=== PATIENT | female | born 1975 | race Two or more races ===

== ENCOUNTER 2017-08-13 05:05 | Inpatient (IN) | payer MEDICAID ==
[2017-08-13] MEDS ORDERED: Sodium Chloride 0.9% 1,000 ML IV ONE (05:11)
--- NOTE | 2017-08-13 05:20 | EDM.PDOC ---
ED HPI GENERAL MEDICAL PROBLEM - General Chief Complaint: Abdominal Pain Time Seen by Provider: 08/13/17 05:13 Source of Information: Reports: Patient, EMS - History of Present Illness INITIAL COMMENTS - FREE TEXT/NARRATIVE: HISTORY AND PHYSICAL: History of present illness: [Patient had presented to [facility] emergency room with abdominal pain, she CBC CMP abdominal flat and upright performed performed in [facility] with a diagnosis of gastroparesis versus gastric all of obstruction. They had been having trouble passing an NG tube and had called requesting transfer for evaluation and treatment. Patient had received fentanyl and Ativan in [facility]. The patient had refused ambulance transfer and wanted to come by private vehicle with a reefer truck driver. The patient did not present to our emergency department ultimately called [facility] inquiring about the patient she and her significant other had went home she had been sleeping and was awakened by police at [facility] request. Ultimately ambulance was called to transport the patient. She had complained of abdominal pain EMS provided further fentanyl 50 g. Patient is belching no fever nausea vomiting chills sweats no chest pain shortness breath headache dizziness palpitation denies ] Review of systems: As per history of present illness and below otherwise all systems reviewed and negative. Past medical history: As per history of present illness and as reviewed below otherwise noncontributory. Surgical history: As per history of present illness and as reviewed below otherwise noncontributory. Social history: No reported history of drug or alcohol abuse. Family history: As per history of present illness and as reviewed below otherwise noncontributory. Physical exam: HEENT: Atraumatic, normocephalic, pupils reactive, negative for conjunctival pallor or scleral icterus, mucous membranes moist, throat clear, neck supple, nontender, trachea midline. Lungs: Clear to auscultation, breath sounds equal bilaterally, chest nontender. Heart: S1S2, regular, negative for clicks, rubs, or JVD. Abdomen: obese, mildly distended, diffusely tender. Negative for masses or hepatosplenomegaly. Negative for costovertebral tenderness. Pelvis: Stable nontender. Genitourinary: Deferred. Rectal: Deferred. Extremities: Atraumatic, negative for cords or calf pain. Neurovascular unremarkable. Neuro: Awake, alert, oriented. Cranial nerves II through XII unremarkable. Cerebellum unremarkable. Motor and sensory unremarkable throughout. Exam nonfocal. Diagnostics: [CBC, blood cultures CBC CMP and plain film flat and upright abdomen performed in [facility], unable to open on PACS viewer, records accompany the patient read as gastroparesis versus gastric outlet obstruction Abdomen flat and upright ] Therapeutics: []1 L normal saline bolus Normal saline 1 25 mL per hour Reglan 10 mg IV Patient discussed with Dr. Wilkerson earlier in the evening Impression: Hypotension on arrival--resolved [Abdominal pain Ileus Definitive disposition and diagnosis as appropriate pending reevaluation and review of above. Abdomen Pain Score (Numeric/FACES): 9 - Related Data Allergies Allergy/AdvReac Type Severity Reaction Status Date / Time Penicillins Allergy Hives Verified 08/13/17 05:09 Bee Stings Allergy Edema Uncoded 08/13/17 05:09 Home Meds: Home Meds Naproxen 220 mg PO ASDIRECTED PRN 08/13/17 [History] Prazosin [Minpress] 1 mg PO BEDTIME 08/13/17 [History] Sertraline HCl [Zoloft] 1 tab PO DAILY 08/13/17 [History] Solifenacin Succinate [Vesicare] 10 mg PO DAILY 08/13/17 [History] diphenhydrAMINE [Benadryl] 25 mg PO Q6HR 08/13/17 [History] Social & Family History - Tobacco Use Smoking Status *Q: Never Smoker - Recreational Drug Use Recreational Drug Use: No ED ROS GENERAL - Review of Systems Review Of Systems: ROS reveals no pertinent complaints other than HPI. ED EXAM, GENERAL - Physical Exam Exam: See Below Course - Vital Signs Last Recorded V/S: Last Vital Signs Temp 99.1 F 08/13/17 05:05 Pulse 73 08/13/17 06:22 Resp 18 08/13/17 06:22 BP 120/56 L 08/13/17 06:22 Pulse Ox 96 08/13/17 06:22 - Orders/Labs/Meds Orders: Active Orders 24 hr Category Date Time Status Admission Status [Patient Status] [ADT] Stat ADT 08/13/17 06:29 Ordered Abdomen 2V AP Flat Upright [CR] Stat Exams 08/13/17 05:20 Ordered CULTURE BLOOD [BC] Stat Lab 08/13/17 05:26 Received CULTURE BLOOD [BC] Stat Lab 08/13/17 05:30 Results Blood Culture x2 Reflex Set [OM.PC] Stat Oth 08/13/17 05:12 Ordered Labs: Laboratory Tests 08/13/17 Range/Units 05:26 WBC 10.95 (4.0-11.0) K/uL RBC 3.93 L (4.30-5.90) M/uL Hgb 11.8 L (12.0-16.0) g/dL Hct 36.7 (36.0-46.0) % MCV 93.4 (80.0-98.0) fL MCH 30.0 (27.0-32.0) pg MCHC 32.2 (31.0-37.0) g/dL RDW Std Deviation 52.7 (28.0-62.0) fl RDW Coeff of Titus 16 H (11.0-15.0) % Plt Count 280 (150-400) K/uL MPV 10.20 (7.40-12.00) fL Neut % (Auto) 67.9 (48.0-80.0) % Lymph % (Auto) 18.4 (16.0-40.0) % [place] % (Auto) 8.3 (0.0-15.0) % Eos % (Auto) 5.1 (0.0-7.0) % Baso % (Auto) 0.3 (0.0-1.5) % Neut # (Auto) 7.4 H (1.4-5.7) K/uL Lymph # (Auto) 2.0 (0.6-2.4) K/uL [place] # (Auto) 0.9 H (0.0-0.8) K/uL Eos # (Auto) 0.6 (0.0-0.7) K/uL Baso # (Auto) 0.0 (0.0-0.1) K/uL Nucleated RBC % 0.0 /100WBC Nucleated RBCs # 0 K/uL Meds: Medications Discontinued Medications Generic Name Dose Route Start Last Admin Trade Name Freq PRN Reason Stop Dose Admin Sodium Chloride 1,000 mls @ 999 mls/hr 08/13/17 05:11 08/13/17 05:17 Normal Saline IV 08/13/17 06:11 999 mls/hr STAT ONE Administration Metoclopramide HCl 10 mg 08/13/17 06:29 Reglan IV 12/02/17 06:30 ONETIME ONE Departure - Departure Time of Disposition: 06:32 Disposition: Refer to Observation Condition: Fair Clinical Impression: Ileus - Discharge Information Referrals: Puja Tejeda PA [Primary Care Provider] - Forms: ED Department Discharge - My Orders Last 24 Hours: My Active Orders 08/13/17 05:12 Blood Culture x2 Reflex Set [OM.PC] Stat 08/13/17 05:20 Abdomen 2V AP Flat Upright [CR] Stat 08/13/17 05:26 CULTURE BLOOD [BC] Stat 08/13/17 05:30 CULTURE BLOOD [BC] Stat 08/13/17 06:29 Admission Status [Patient Status] [ADT] Stat - Assessment/Plan Last 24 Hours: My Active Orders 08/13/17 05:12 Blood Culture x2 Reflex Set [OM.PC] Stat 08/13/17 05:20 Abdomen 2V AP Flat Upright [CR] Stat 08/13/17 05:26 CULTURE BLOOD [BC] Stat 08/13/17 05:30 CULTURE BLOOD [BC] Stat 08/13/17 06:29 Admission Status [Patient Status] [ADT] Stat
[2017-08-13] MEDS ORDERED: Metoclopramide 10 MG/2 ML SDV IV ONE (06:29)
[2017-08-13] MEDS ORDERED: Sodium Chloride 0.9% 1,000 ML IV SCH (06:45)
[2017-08-13] MEDS ORDERED: Ondansetron 4 MG/2 ML SDV IVPUSH PRN (08:56)
[2017-08-13 10:52] LABS: CHLORIDE,CL 109 mmol/L (98-110); SODIUM,NA 137 mmol/L (136-146)
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
--- NOTE | 2017-08-13 11:05 | PCM.SN ---
- Free Text/Narrative Note: Stat lactate was within normal limits.
[2017-08-13] MEDS: D5 1/2 NS w/ 20 mEq/L KCl 1,000 ML IV SCH ×2 (11:12→18:28)
[2017-08-13] MEDS: Morphine 2 MG/ML Syringe IVPUSH PRN ×4 (12:29→22:32)
[2017-08-13] MEDS ORDERED: LORazepam 2 MG/ML SDV IVPUSH PRN (21:02)
[2017-08-13] MEDS: Prazosin 1 MG Cap PO SCH (22:31)
[2017-08-13] MEDS: Ciprofloxacin in D5W 400 MG in Premix Bag 1 BAG IV SCH ×2 (22:32)
[2017-08-13] MEDS: metroNIDAZOLE/Normal Saline 500 MG in Premix Bag 1 BAG IV SCH (23:41)
[2017-08-14] MEDS: D5 1/2 NS w/ 20 mEq/L KCl 1,000 ML IV SCH (02:56)
[2017-08-14] MEDS: Ciprofloxacin in D5W 400 MG in Premix Bag 1 BAG IV SCH ×6 (05:06→22:13)
[2017-08-14] MEDS: metroNIDAZOLE/Normal Saline 500 MG in Premix Bag 1 BAG IV SCH ×4 (06:12→20:51)
[2017-08-14 06:43] LABS: CHLORIDE,CL 106 mmol/L (98-110); SODIUM,NA 134 mmol/L (136-146)
[2017-08-14] MEDS: Morphine 2 MG/ML Syringe IVPUSH PRN (07:31)
[2017-08-14] MEDS: Sertraline 50 MG Tab PO SCH (08:45)
[2017-08-14] MEDS ORDERED: Enoxaparin 40 MG/0.4 ML Syringe SUBCUT SCH (09:00)
[2017-08-14] MEDS ORDERED: Iopamidol 755 MG/ML 500 ML Multipack Bottle IVPUSH STA (09:23)
[2017-08-14] MEDS ORDERED: fentaNYL 100 MCG/2 ML SDV IVPUSH ONE (10:44)
--- NOTE | 2017-08-14 10:50 | PCM.SN ---
- Free Text/Narrative Note: [address] abd/pelvis results from nurse which showed acute perforated appendix. Call immediately given to surgery Dr. Gray to see patient.
--- NOTE | 2017-08-14 11:51 | PCM.SN ---
- Free Text/Narrative Note: pt seen, chart reviewed, proceed w appendectomy; pt had lovenox, will risk bleeding, pt voiced understanding; [id number]
[2017-08-14] MEDS ORDERED: Bupivacaine 25%/EPINEPHrine/PF 30 ML ONE (11:54)
[2017-08-14] MEDS ORDERED: Octyl 2-Cyanoacrylate 1 Tube ONE (11:55)
[2017-08-14] MEDS ORDERED: fentaNYL 100 MCG/2 ML SDV ONE (12:01)
[2017-08-14] MEDS ORDERED: HYDROmorphone 2 MG/ML Syringe ONE (12:01)
[2017-08-14] MEDS ORDERED: Propofol 200 MG/20 ML SDV ONE (12:01)
[2017-08-14] MEDS ORDERED: Midazolam 1 MG/ML 2 ML SDV ONE (12:01)
[2017-08-14] MEDS ORDERED: Ondansetron 4 MG/2 ML SDV ONE (12:03)
[2017-08-14] MEDS ORDERED: Neostigmine Methylsulfate 1 MG/ML 5 ML Syringe ONE (12:03)
[2017-08-14] MEDS ORDERED: Ketorolac 30 MG/ML SDV ONE (12:03)
[2017-08-14] MEDS ORDERED: Lidocaine 2% 5 ML SDV ONE (12:03)
[2017-08-14] MEDS ORDERED: diphenhydrAMINE 50 MG/ML SDV ONE (12:03)
[2017-08-14] MEDS ORDERED: Rocuronium 10 MG/ML 10 ML Syringe ONE (12:03)
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
--- NOTE | 2017-08-14 12:29 | PCM.SN ---
- Free Text/Narrative Note: pt had lovenox 5 hrs ago, and is now for surgery; with perforated appendectomy, hi risks to convert from lap to open; will proceed w 2 unit of FFP. pt voiced understanding; and surgery will also insert a anabelle drain, and if open appendectomy , wound would need to leave open to dressing change q day for 1 - 2 wks; pt and fam member voiced understanding
[2017-08-14] MEDS ORDERED: Lactated Ringers 1,000 ML IV SCH ×2 (12:30→16:30)
[2017-08-14] MEDS ORDERED: fentaNYL 100 MCG/2 ML SDV IVPUSH PRN ×2 (12:39→20:33)
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
[2017-08-14] MEDS: Acetaminophen 325 MG Tab PO PRN (12:52)
[2017-08-14] MEDS ORDERED: Phenylephrine/Normal Saline 100 MCG/ML 10 ML Syringe ONE (14:05)
[2017-08-14] MEDS ORDERED: fentaNYL 250 MCG/5 ML SDV ONE (14:17)
--- NOTE | 2017-08-14 15:54 | CONS ---
DATE OF CONSULTATION: 08/14/2017 DATE OF : 1975 PRIMARY CARE PHYSICIAN: Puja Tejeda Consult was called at 10:45 and the patient was seen at 11:30. CONSULTING QUESTION: Perforated appendicitis. HISTORY OF PRESENT ILLNESS: The patient is a [id number] who complained about acute onset of epigastric pain, 06/21, 3 days ago. She was seen at [place], who wanted to do an NG tube decompression for possible gastric outlet obstruction, but the patient refused, and the patient was recommended to come to [place] for further workup and treatment. The patient states she was too tired, she went home and slept, so the hospital apparently called the police in [place] to locate the patient, and transport the patient to our facility, and workup was continued. The patient complained of fever, nausea, vomiting, and abdominal pain. There was no increase in pain and workup included blood work and CAT scan. Admission blood work was 10.95 white count and subsequently increased to 13.76. She had a workup with CAT scan and CAT scan revealed acute perforated appendicitis. Surgery was then consulted. Currently, the patient complains lots of pain and requests pain medication. PAST SURGICAL HISTORY: Normal delivery x5 and x1. ALLERGIES: She is allergic to PCN MEDICATION: Please refer to nursing for details. SOCIAL HISTORY: The patient is currently an everyday smoker. Sometimes some alcohol. FAMILY HISTORY: Noncontributory. REVIEW OF SYSTEMS: Same as in history of present illness. PHYSICAL EXAMINATION: GENERAL: A very pleasant lady, in obvious abdominal pain. HEENT: Normocephalic, atraumatic. Sclerae anicteric. LUNGS: Clear to auscultation. HEART: Regular rate and rhythm. ABDOMEN: Tender to touch in bilateral lower quadrants and with rebound tenderness. LABORATORY DATA: Upon consultation, white count 13.76, H and H is 11 and 34.6, and platelet is 233. Sodium 134, potassium 3.6, glucose is 131, amylase is 28, lipase is 29, and beta HCG is not available. IMPRESSION: Acute appendicitis. PLAN: She will benefit from appendectomy, laparoscopic versus open, likely with open. Risks and benefits were discussed with the patient including bleeding, infection, and damage to nearby organ and risks of abdominal abscess around 24% chance. The patient will have the appendix removed, risks and benefits were discussed including a drain placement and wound likely will be left open. The patient voiced understanding and proceed as planned. The patient is already on Lovenox given 5 hours ago and the patient will risk bleeding. The patient is aware of that and proceeds with surgery. DASHA GUTIERREZ /[id number] MTDWilfred
[2017-08-14] MEDS ORDERED: Morphine 4 MG/ML Syringe IV PRN (16:24)
[2017-08-14] MEDS ORDERED: Ondansetron 4 MG/2 ML SDV IVPUSH PRN (16:26)
[2017-08-14] MEDS ORDERED: Levofloxacin/Dextrose 5%-Water 750 MG in Premix Bag 1 BAG IV SCH (16:30)
--- NOTE | 2017-08-14 16:34 | PCM.OPNOTE ---
- General Post-Op/Procedure Note Date of Surgery/Procedure: 08/14/17 Operative Procedure(s): appendectomy, laparoscopic Findings: perforated appendicits with appendicolith and peritonitis; peritoneal fluid is yellow and cloudy; drain placed; [id number] Pre Op Diagnosis: perforated acute appendicitis Post-Op Diagnosis: same Anesthesia Technique: General ET Tube Primary Surgeon: Gabriel Gray Pathology: sent Complications: None Condition: Good Free Text/Narrative:: Intake & Output 08/14/17 08/14/17 08/14/17 06:59 14:59 22:59 Intake Total 1800 214 191 Output Total 550 50 Balance 1250 164 191
--- NOTE | 2017-08-14 17:13 | PCM.POSTAN ---
POST ANESTHESIA ASSESSMENT - MENTAL STATUS Mental Status: Oriented, Somnolent - VITAL SIGNS Pulse Rate: 106 SaO2: 96 Resp Rate: 20 Blood Pressure: 90/50 - RESPIRATORY Respiratory Status: Respiratory Rate WNL, Airway Patent, O2 Saturation Stable - CARDIOVASCULAR CV Status: Pulse Rate WNL, Blood Pressure Stable, Elevated Pulse Rate (as per baseline preop) Free Text/Narrative:: required one liter LR bp now stable at systolic between 85 and 95 for 30 minutes - GASTROINTESTINAL GI Status: No Symptoms - PAIN Pain Score: 2 - POST OP HYDRATION Hydration Status: Adequate & Stable
[2017-08-14] MEDS ORDERED: Phenylephrine/Normal Saline 100 MCG/ML 10 ML Syringe IVPUSH ONE ×2 (18:14→18:49)
[2017-08-14] MEDS ORDERED: Sodium Chloride 0.9% 1,000 ML IV ONE (18:25)
[2017-08-14] MEDS: Prazosin 1 MG Cap PO SCH (20:29)
[2017-08-14] MEDS: Sodium Chloride 0.9% 1,000 ML IV SCH (20:46)
[2017-08-15] MEDS: Acetaminophen 325 MG Tab PO PRN ×2 (00:43→11:52)
[2017-08-15] MEDS: metroNIDAZOLE/Normal Saline 500 MG in Premix Bag 1 BAG IV SCH ×4 (02:04→20:58)
[2017-08-15] MEDS: Acetaminophen/oxyCODONE 325-5 MG Tab PO PRN ×4 (04:00→18:12)
[2017-08-15] MEDS: Ciprofloxacin in D5W 400 MG in Premix Bag 1 BAG IV SCH ×6 (05:05→22:10)
--- NOTE | 2017-08-15 06:29 | PCM48HPAN ---
Post Anesthesia Note - EVALUATION WITHIN 48HRS OF ANESTHETIC Vital Signs in Normal Range: Yes Patient Participated in Evaluation: No (sleeping, spoke to RN) Respiratory Function Stable: Yes Airway Patent: Yes Cardiovascular Function Stable: Yes (fluid boluses through the night) Hydration Status Stable: Yes Pain Control Satisfactory: Yes Nausea and Vomiting Control Satisfactory: Yes Mental Status Recovered: Yes
[2017-08-15 06:36] LABS: CHLORIDE,CL 110 mmol/L (98-110); SODIUM,NA 139 mmol/L (136-146)
--- NOTE | 2017-08-15 07:26 | PCM.SURGPN ---
- General Info Date of Service: 08/15/17 POD#: 1 Functional Status: Reports: Pain Controlled - Review of Systems General: Reports: No Symptoms Genitourinary: Reports: No Symptoms - Patient Data Vitals - Most Recent: Last Vital Signs Temp 99 F 08/15/17 04:00 Pulse 106 H 08/14/17 18:50 Resp 18 08/15/17 07:00 BP 106/55 L 08/15/17 07:00 Pulse Ox 96 08/15/17 07:00 Weight - Most Recent: 209 lb 7.026 oz I&O - Last 24 Hours: Intake & Output 08/14/17 08/15/17 08/15/17 22:59 06:59 14:59 Intake Total 3231 370 Output Total 990 740 Balance 2241 -370 Lab Results Last 24 Hrs: Laboratory Results - last 24 hr 08/14/17 08/14/17 08/14/17 Range/Units 06:10 06:10 11:28 WBC (4.0-11.0) K/uL RBC (4.30-5.90) M/uL Hgb (12.0-16.0) g/dL Hct (36.0-46.0) % MCV (80.0-98.0) fL MCH (27.0-32.0) pg MCHC (31.0-37.0) g/dL RDW Std Deviation (28.0-62.0) fl RDW Coeff of Titus (11.0-15.0) % Plt Count (150-400) K/uL MPV (7.40-12.00) fL Neut % (Auto) (48.0-80.0) % Lymph % (Auto) (16.0-40.0) % Harlan % (Auto) (0.0-15.0) % Eos % (Auto) (0.0-7.0) % Baso % (Auto) (0.0-1.5) % Neut # (Auto) (1.4-5.7) K/uL Lymph # (Auto) (0.6-2.4) K/uL Harlan # (Auto) (0.0-0.8) K/uL Eos # (Auto) (0.0-0.7) K/uL Baso # (Auto) (0.0-0.1) K/uL Nucleated RBC % /100WBC Nucleated RBCs # K/uL INR (0.86-1.11) APTT (18.6-31.3) SEC Sodium (136-146) mmol/L Potassium (3.5-5.1) mmol/L Chloride (98-110) mmol/L Carbon Dioxide (21-31) mmol/L BUN (6.0-23.0) mg/dL Creatinine (0.6-1.5) mg/dL Est Cr Clr Drug Dosing mL/min Estimated GFR (MDRD) ml/min Glucose (60-110) mg/dL POC Glucose 126 H (60-110) mg/dL Calcium (8.8-10.8) mg/dL Magnesium (1.5-2.3) mEq/L Total Bilirubin (0.1-1.5) mg/dL AST (5-40) IU/L ALT (8-54) IU/L Alkaline Phosphatase (40-150) Total Protein (6.0-8.0) g/dL Albumin (3.5-5.0) g/dL Globulin (2.0-3.5) g/dL Albumin/Globulin Ratio (1.3-2.8) Amylase 28 (10-90) U/L Lipase < 9 (7-80) U/L Urine HCG, Qual (NEGATIVE) Blood Type Antibody Screen 08/14/17 08/14/17 08/14/17 Range/Units 12:14 12:15 12:15 WBC (4.0-11.0) K/uL RBC (4.30-5.90) M/uL Hgb (12.0-16.0) g/dL Hct (36.0-46.0) % MCV (80.0-98.0) fL MCH (27.0-32.0) pg MCHC (31.0-37.0) g/dL RDW Std Deviation (28.0-62.0) fl RDW Coeff of Titus (11.0-15.0) % Plt Count (150-400) K/uL MPV (7.40-12.00) fL Neut % (Auto) (48.0-80.0) % Lymph % (Auto) (16.0-40.0) % Harlan % (Auto) (0.0-15.0) % Eos % (Auto) (0.0-7.0) % Baso % (Auto) (0.0-1.5) % Neut # (Auto) (1.4-5.7) K/uL Lymph # (Auto) (0.6-2.4) K/uL Harlan # (Auto) (0.0-0.8) K/uL Eos # (Auto) (0.0-0.7) K/uL Baso # (Auto) (0.0-0.1) K/uL Nucleated RBC % /100WBC Nucleated RBCs # K/uL INR 1.31 H (0.86-1.11) APTT 31.6 H (18.6-31.3) SEC Sodium (136-146) mmol/L Potassium (3.5-5.1) mmol/L Chloride (98-110) mmol/L Carbon Dioxide (21-31) mmol/L BUN (6.0-23.0) mg/dL Creatinine (0.6-1.5) mg/dL Est Cr Clr Drug Dosing mL/min Estimated GFR (MDRD) ml/min Glucose (60-110) mg/dL POC Glucose (60-110) mg/dL Calcium (8.8-10.8) mg/dL Magnesium (1.5-2.3) mEq/L Total Bilirubin (0.1-1.5) mg/dL AST (5-40) IU/L ALT (8-54) IU/L Alkaline Phosphatase (40-150) Total Protein (6.0-8.0) g/dL Albumin (3.5-5.0) g/dL Globulin (2.0-3.5) g/dL Albumin/Globulin Ratio (1.3-2.8) Amylase (10-90) U/L Lipase (7-80) U/L Urine HCG, Qual NEGATIVE (NEGATIVE) Blood Type A POSITIVE Antibody Screen NEGATIVE 08/14/17 08/15/17 08/15/17 Range/Units 18:13 00:38 05:33 WBC 9.74 (4.0-11.0) K/uL RBC 3.29 L (4.30-5.90) M/uL Hgb 9.9 L (12.0-16.0) g/dL Hct 30.8 L (36.0-46.0) % MCV 93.6 (80.0-98.0) fL MCH 30.1 (27.0-32.0) pg MCHC 32.1 (31.0-37.0) g/dL RDW Std Deviation 55.4 (28.0-62.0) fl RDW Coeff of Titus 16 H (11.0-15.0) % Plt Count 203 (150-400) K/uL MPV 10.20 (7.40-12.00) fL Neut % (Auto) 86.4 H (48.0-80.0) % Lymph % (Auto) 7.8 L (16.0-40.0) % Harlan % (Auto) 5.2 (0.0-15.0) % Eos % (Auto) 0.5 (0.0-7.0) % Baso % (Auto) 0.1 (0.0-1.5) % Neut # (Auto) 8.4 H (1.4-5.7) K/uL Lymph # (Auto) 0.8 (0.6-2.4) K/uL Harlan # (Auto) 0.5 (0.0-0.8) K/uL Eos # (Auto) 0.1 (0.0-0.7) K/uL Baso # (Auto) 0.0 (0.0-0.1) K/uL Nucleated RBC % 0.0 /100WBC Nucleated RBCs # 0 K/uL INR (0.86-1.11) APTT (18.6-31.3) SEC Sodium (136-146) mmol/L Potassium (3.5-5.1) mmol/L Chloride (98-110) mmol/L Carbon Dioxide (21-31) mmol/L BUN (6.0-23.0) mg/dL Creatinine (0.6-1.5) mg/dL Est Cr Clr Drug Dosing mL/min Estimated GFR (MDRD) ml/min Glucose (60-110) mg/dL POC Glucose 121 H 96 (60-110) mg/dL Calcium (8.8-10.8) mg/dL Magnesium (1.5-2.3) mEq/L Total Bilirubin (0.1-1.5) mg/dL AST (5-40) IU/L ALT (8-54) IU/L Alkaline Phosphatase (40-150) Total Protein (6.0-8.0) g/dL Albumin (3.5-5.0) g/dL Globulin (2.0-3.5) g/dL Albumin/Globulin Ratio (1.3-2.8) Amylase (10-90) U/L Lipase (7-80) U/L Urine HCG, Qual (NEGATIVE) Blood Type Antibody Screen 08/15/17 08/15/17 08/15/17 Range/Units 05:33 05:33 05:33 WBC (4.0-11.0) K/uL RBC (4.30-5.90) M/uL Hgb (12.0-16.0) g/dL Hct (36.0-46.0) % MCV (80.0-98.0) fL MCH (27.0-32.0) pg MCHC (31.0-37.0) g/dL RDW Std Deviation (28.0-62.0) fl RDW Coeff of Titus (11.0-15.0) % Plt Count (150-400) K/uL MPV (7.40-12.00) fL Neut % (Auto) (48.0-80.0) % Lymph % (Auto) (16.0-40.0) % Harlan % (Auto) (0.0-15.0) % Eos % (Auto) (0.0-7.0) % Baso % (Auto) (0.0-1.5) % Neut # (Auto) (1.4-5.7) K/uL Lymph # (Auto) (0.6-2.4) K/uL Harlan # (Auto) (0.0-0.8) K/uL Eos # (Auto) (0.0-0.7) K/uL Baso # (Auto) (0.0-0.1) K/uL Nucleated RBC % /100WBC Nucleated RBCs # K/uL INR (0.86-1.11) APTT (18.6-31.3) SEC Sodium 139 (136-146) mmol/L Potassium 3.0 L (3.5-5.1) mmol/L Chloride 110 (98-110) mmol/L Carbon Dioxide 22 (21-31) mmol/L BUN 5 L (6.0-23.0) mg/dL Creatinine 0.5 L (0.6-1.5) mg/dL Est Cr Clr Drug Dosing 125.28 mL/min Estimated GFR (MDRD) > 60.0 ml/min Glucose 95 (60-110) mg/dL POC Glucose 86 (60-110) mg/dL Calcium 7.8 L (8.8-10.8) mg/dL Magnesium 1.5 (1.5-2.3) mEq/L Total Bilirubin 0.4 (0.1-1.5) mg/dL AST 11 (5-40) IU/L ALT 13 (8-54) IU/L Alkaline Phosphatase 51 (40-150) Total Protein 5.4 L (6.0-8.0) g/dL Albumin 2.9 L (3.5-5.0) g/dL Globulin 2.5 (2.0-3.5) g/dL Albumin/Globulin Ratio 1.2 L (1.3-2.8) Amylase (10-90) U/L Lipase (7-80) U/L Urine HCG, Qual (NEGATIVE) Blood Type Antibody Screen Flaco Results Last 24 Hrs: Microbiology 08/14/17 14:55 Gram Stain - Final Peritoneal Fluid Med Orders - Current: Current Medications Acetaminophen (Tylenol) 650 mg PO Q4H PRN PRN Reason: Pain/Fever Last Admin: 08/15/17 00:43 Dose: 650 mg Fentanyl (Sublimaze) 50 mcg IVPUSH Q1H PRN PRN Reason: Pain (severe 7-10) Last Admin: 08/14/17 21:17 Dose: 50 mcg Ciprofloxacin/Dextrose 400 mg/ (Premix) 200 mls @ 200 mls/hr IV Q8H [facility] Last Admin: 08/15/17 05:05 Dose: 200 mls/hr Sodium Chloride (Normal Saline) 1,000 mls @ 150 mls/hr IV ASDIRECTED [facility] Last Admin: 08/14/17 20:46 Dose: 150 mls/hr Metronidazole 500 mg/ Premix 100 mls @ 100 mls/hr IV Q6H [facility] Last Admin: 08/15/17 02:04 Dose: 100 mls/hr Lorazepam (Ativan) 2 mg IVPUSH BEDTIME PRN PRN Reason: Anxiety Last Admin: 08/14/17 00:20 Dose: 2 mg Ondansetron HCl (Zofran) 4 mg IVPUSH Q4H PRN PRN Reason: Nausea/Vomiting Last Admin: 08/13/17 09:03 Dose: 4 mg Ondansetron HCl (Zofran) 4 mg IVPUSH Q8H PRN PRN Reason: Nausea/Vomiting Oxycodone/Acetaminophen (Percocet 325-5 Mg) 1 tab PO Q4H PRN PRN Reason: Pain Last Admin: 08/15/17 04:00 Dose: 1 tab Prazosin HCl (Minpress) 1 mg PO BEDTIME JANETT Last Admin: 08/14/17 20:29 Dose: Not Given Sertraline HCl (Zoloft) 50 mg PO DAILY [facility] Last Admin: 08/14/17 08:45 Dose: 50 mg Discontinued Medications Diphenhydramine HCl (Benadryl) Confirm Administered Dose 50 mg .ROUTE .STK-MED ONE Stop: 08/14/17 12:04 Enoxaparin Sodium (Lovenox) 40 mg SUBCUT DAILY [facility] Last Admin: 08/14/17 08:45 Dose: 40 mg Fentanyl (Sublimaze) 50 mcg IVPUSH ONETIME ONE Stop: 08/14/17 10:45 Last Admin: 08/14/17 11:39 Dose: 50 mcg Fentanyl (Sublimaze) Confirm Administered Dose 100 mcg .ROUTE .STK-MED ONE Stop: 08/14/17 12:02 Fentanyl (Sublimaze) 50 mcg IVPUSH Q5M PRN PRN Reason: Pain (severe 7-10) Stop: 08/14/17 18:00 Fentanyl (Sublimaze) Confirm Administered Dose 250 mcg .ROUTE .STK-MED ONE Stop: 08/14/17 14:18 Glycopyrrolate () Confirm Administered Dose 1 mg .ROUTE .STK-MED ONE Stop: 08/14/17 12:04 Hydromorphone HCl (Dilaudid) Confirm Administered Dose 2 mg .ROUTE .STK-MED ONE Stop: 08/14/17 12:02 Sodium Chloride (Normal Saline) 1,000 mls @ 999 mls/hr IV STAT ONE Stop: 08/13/17 06:11 Last Admin: 08/13/17 05:17 Dose: 999 mls/hr Sodium Chloride (Normal Saline) 1,000 mls @ 125 mls/hr IV ASDIRECTED [facility] Last Admin: 08/13/17 06:35 Dose: 125 mls/hr Potassium Chloride/Dextrose/Sod Cl (D5 1/2 Ns W/ 20 Meq/L Kcl) 1,000 mls @ 150 mls/hr IV ASDIRECTED [facility] Last Admin: 08/14/17 02:56 Dose: 150 mls/hr Metronidazole 500 mg/ Premix 100 mls @ 100 mls/hr IV Q6H [facility] Last Admin: 08/14/17 19:59 Dose: Not Given Bupivacaine HCl/Epinephrine Bitart (Sensorc Mpf 0.25%-Epi 1:[id number]) Confirm Administered Dose 30 mls @ as directed .ROUTE .STK-MED ONE Stop: 08/14/17 11:55 Lactated Ringer's (Ringers, Lactated) 1,000 mls @ 125 mls/hr IV ASDIRECTED [facility] Last Admin: 08/14/17 17:26 Dose: 125 mls/hr Lactated Ringer's (Ringers, Lactated) 1,000 mls @ 125 mls/hr IV ASDIRECTED [facility] Levofloxacin/Dextrose 750 mg/ (Premix) 150 mls @ 100 mls/hr IV Q24H [facility] Last Admin: 08/14/17 17:39 Dose: 100 mls/hr Sodium Chloride (Normal Saline) 1,000 mls @ 999 mls/hr IV .Bolus ONE Stop: 08/14/17 19:25 Last Admin: 08/14/17 18:30 Dose: 999 mls/hr Iopamidol (Isovue Multipack-370 (76%)) 100 ml IVPUSH ONETIME STA Stop: 08/14/17 09:24 Last Admin: 08/14/17 09:24 Dose: 100 ml Ketorolac Tromethamine (Toradol) Confirm Administered Dose 30 mg .ROUTE .STK- MED ONE Stop: 08/14/17 12:04 Lidocaine (Xylocaine-Mpf 2%) Confirm Administered Dose 5 ml .ROUTE .STK-MED ONE Stop: 08/14/17 12:04 Metoclopramide HCl (Reglan) 10 mg IV ONETIME ONE Stop: 08/13/17 06:30 Last Admin: 08/13/17 06:33 Dose: 10 mg Midazolam HCl (Versed 1 Mg/Ml) Confirm Administered Dose 2 mg .ROUTE .STK-MED ONE Stop: 08/14/17 12:02 Morphine Sulfate (Morphine) 2 mg IVPUSH Q4H PRN PRN Reason: Pain Last Admin: 08/13/17 16:52 Dose: 2 mg Morphine Sulfate (Morphine) 2 mg IVPUSH Q2H PRN PRN Reason: Pain Last Admin: 08/14/17 07:31 Dose: 2 mg Morphine Sulfate (Morphine) 3 mg IV Q4H PRN PRN Reason: Breakthrough Pain Neostigmine Methylsulfate (Neostigmine) Confirm Administered Dose 5 mg .ROUTE .STK-MED ONE Stop: 08/14/17 12:04 Octyl Cyanoacrylate (Dermabond Advance) Confirm Administered Dose 1 applic .ROUTE .STK-MED ONE Stop: 08/14/17 11:56 Ondansetron HCl (Zofran) Confirm Administered Dose 4 mg .ROUTE .STK-MED ONE Stop: 08/14/17 12:04 Phenylephrine HCl (Phenylephrine In Ns 100 Mcg/Ml) Confirm Administered Dose 1 mg .ROUTE .STK-MED ONE Stop: 08/14/17 14:06 Phenylephrine HCl (Phenylephrine In Ns 100 Mcg/Ml) 0.1 mg IVPUSH ONETIME ONE Stop: 08/14/17 18:15 Last Admin: 08/14/17 18:32 Dose: 0.1 mg Phenylephrine HCl (Phenylephrine In Ns 100 Mcg/Ml) 0.2 mg IVPUSH ONETIME ONE Stop: 08/14/17 18:50 Last Admin: 08/14/17 18:55 Dose: 0.2 mg Propofol (Diprivan 20 Ml) Confirm Administered Dose 200 mg .ROUTE .STK-MED ONE Stop: 08/14/17 12:02 Rocuronium [place] (Zemuron) Confirm Administered Dose 100 mg .ROUTE .STK-MED ONE Stop: 08/14/17 12:04 - Exam GI/Abdominal Exam: Soft, No Distention (wound cdi) - Problem List Review Problem List Initiated/Reviewed/Updated: Yes - My Orders Last 24 Hours: Active Orders 24 hr Category Date Time Status Transfer Patient (Change bed) [ADT] Routine ADT 08/14/17 18:57 Ordered Bradycardia-Neuroaxis [employer] [RC] ROUTINE Care 08/14/17 12:40 Active Communication Order [RC] ROUTINE Care 08/14/17 17:57 Active Hypertension-Neuroaxis [employer] [RC] ROUTINE Care 08/14/17 12:40 Active Hypotension-Neuroaxis [employer] [RC] ROUTINE Care 08/14/17 12:40 Active Insert Jackman Catheter [Insert Urinary Catheter] [OM.PC] Care 08/14/17 12:30 Ordered Q24H Oxygen Therapy [RC] ASDIRECTED Care 08/14/17 12:40 Active Urinary Catheter Assessment [RC] ASDIRECTED Care 08/14/17 12:22 Active Verify Patient Consent Obtain [RC] ASDIRECTED Care 08/14/17 12:20 Active Clear Liquid Diet [DIET] Diet 08/15/17 Breakfast Active Abdomen Pelvis w Cont [CT] Routine Exams 08/14/17 08:00 Taken CULTURE ANAEROBIC [RM] Routine Lab 08/14/17 14:55 Results CULTURE BLOOD [BC] Routine Lab 08/14/17 19:17 Received CULTURE BLOOD [BC] Stat Lab 08/14/17 19:25 Received CULTURE BODY FLUID + SMEAR [RM] Routine Lab 08/14/17 14:55 Results GRAM STAIN [RM] Routine Lab 08/14/17 14:51 Uncollected Acetaminophen/oxyCODONE [Percocet 325-5 MG] Med 08/14/17 16:26 Active 1 tab PO Q4H PRN Ondansetron [Zofran] Med 08/14/17 16:26 Active 4 mg IVPUSH Q8H PRN Sertraline [Zoloft] Med 08/14/17 09:00 Active 50 mg PO DAILY Sodium Chloride 0.9% [Normal Saline] 1,000 ml Med 08/14/17 20:45 Active IV ASDIRECTED fentaNYL [Sublimaze] Med 08/14/17 20:33 Active 50 mcg IVPUSH Q1H PRN metroNIDAZOLE/Normal Saline [Flagyl 500 MG in NS 100 ML Med 08/14/17 21:00 Active ] 500 mg Premix Bag 1 bag IV Q6H Transfuse Fresh Frozen Plasma [COMM] Stat Oth 08/14/17 12:01 Ordered Medication Orders Acetaminophen (Tylenol) 650 mg PO Q4H PRN PRN Reason: Pain/Fever Last Admin: 08/15/17 00:43 Dose: 650 mg Admin: 08/14/17 12:52 Dose: 650 mg Fentanyl (Sublimaze) 50 mcg IVPUSH Q1H PRN PRN Reason: Pain (severe 7-10) Last Admin: 08/14/17 21:17 Dose: 50 mcg Ciprofloxacin/Dextrose 400 mg/ (Premix) 200 mls @ 200 mls/hr IV Q8H [facility] Last Admin: 08/15/17 05:05 Dose: 200 mls/hr Infusion: 08/14/17 23:13 Dose: 200 mls/hr Admin: 08/14/17 22:13 Dose: 200 mls/hr Admin: 08/14/17 14:05 Dose: Not Given Infusion: 08/14/17 06:06 Dose: 200 mls/hr Admin: 08/14/17 05:06 Dose: 200 mls/hr Infusion: 08/13/17 23:32 Dose: 200 mls/hr Admin: 08/13/17 22:32 Dose: 200 mls/hr Sodium Chloride (Normal Saline) 1,000 mls @ 150 mls/hr IV ASDIRECTED [facility] Last Admin: 08/14/17 20:46 Dose: 150 mls/hr Metronidazole 500 mg/ Premix 100 mls @ 100 mls/hr IV Q6H [facility] Last Admin: 08/15/17 02:04 Dose: 100 mls/hr Infusion: 08/14/17 21:51 Dose: 100 mls/hr Admin: 08/14/17 20:51 Dose: 100 mls/hr Lorazepam (Ativan) 2 mg IVPUSH BEDTIME PRN PRN Reason: Anxiety Last Admin: 08/14/17 00:20 Dose: 2 mg Ondansetron HCl (Zofran) 4 mg IVPUSH Q4H PRN PRN Reason: Nausea/Vomiting Last Admin: 08/13/17 09:03 Dose: 4 mg Ondansetron HCl (Zofran) 4 mg IVPUSH Q8H PRN PRN Reason: Nausea/Vomiting Oxycodone/Acetaminophen (Percocet 325-5 Mg) 1 tab PO Q4H PRN PRN Reason: Pain Last Admin: 08/15/17 04:00 Dose: 1 tab Prazosin HCl (Minpress) 1 mg PO BEDTIME JANETT Last Admin: 08/14/17 20:29 Dose: Admin: 08/13/17 22:31 Dose: 1 mg Sertraline HCl (Zoloft) 50 mg PO DAILY JANETT Last Admin: 08/14/17 08:45 Dose: 50 mg - Assessment Assessment (Free Text/Narrative):: doing well postop, this morning, hemodynamically stable, making urine; would tansfer out to the floor, continue iv abx, no lovenox, hi bleeding risks, if all doing well, likely will dc home late today or tomorrow w anabelle drain; would finish 24 hr iv abx, then po abx for 10 days; fu w me 1 - 2 wks, no heavy wt lifting > 10 lb X 3 wks; ok to have clear liquid diet for today - Plan Plan (Free Text/Narrative):: doing well postop, this morning, hemodynamically stable, making urine; would tansfer out to the floor, continue iv abx, no lovenox, hi bleeding risks, if all doing well, likely will dc home late today or tomorrow w anabelle drain; would finish 24 hr iv abx, then po abx for 10 days; fu w me 1 - 2 wks, no heavy wt lifting > 10 lb X 3 wks; ok to have clear liquid diet for today
[2017-08-15] MEDS ORDERED: Potassium Chloride 10% 20 MEQ/15 ML Soln 30 ML UD Cup PO ONE (07:45)
--- NOTE | 2017-08-15 08:53 | PCM.PN ---
- General Info Date of Service: 08/15/17 Functional Status: Reports: Pain Controlled, Tolerating Diet - Review of Systems General: Reports: Fatigue HEENT: Reports: No Symptoms Pulmonary: Reports: No Symptoms Cardiovascular: Reports: No Symptoms Gastrointestinal: Reports: Abdominal Pain (improving) Musculoskeletal: Reports: No Symptoms Skin: Reports: No Symptoms Neurological: Reports: No Symptoms Psychiatric: Reports: No Symptoms - Patient Data Vitals - Most Recent: Last Vital Signs Temp 99 F 08/15/17 04:00 Pulse 106 H 08/14/17 18:50 Resp 18 08/15/17 07:00 BP 106/55 L 08/15/17 07:00 Pulse Ox 96 08/15/17 07:00 Weight - Most Recent: 95 kg I&O - Last 24 Hours: Intake & Output 08/14/17 08/15/17 08/15/17 22:59 06:59 14:59 Intake Total 3231 1270 Output Total 990 740 Balance 2241 530 Lab Results Last 24 Hours: Laboratory Results - last 24 hr 08/14/17 08/14/17 08/14/17 Range/Units 06:10 06:10 11:28 WBC (4.0-11.0) K/uL RBC (4.30-5.90) M/uL Hgb (12.0-16.0) g/dL Hct (36.0-46.0) % MCV (80.0-98.0) fL MCH (27.0-32.0) pg MCHC (31.0-37.0) g/dL RDW Std Deviation (28.0-62.0) fl RDW Coeff of Titus (11.0-15.0) % Plt Count (150-400) K/uL MPV (7.40-12.00) fL Neut % (Auto) (48.0-80.0) % Lymph % (Auto) (16.0-40.0) % [place] % (Auto) (0.0-15.0) % Eos % (Auto) (0.0-7.0) % Baso % (Auto) (0.0-1.5) % Neut # (Auto) (1.4-5.7) K/uL Lymph # (Auto) (0.6-2.4) K/uL [place] # (Auto) (0.0-0.8) K/uL Eos # (Auto) (0.0-0.7) K/uL Baso # (Auto) (0.0-0.1) K/uL Nucleated RBC % /100WBC Nucleated RBCs # K/uL INR (0.86-1.11) APTT (18.6-31.3) SEC Sodium (136-146) mmol/L Potassium (3.5-5.1) mmol/L Chloride (98-110) mmol/L Carbon Dioxide (21-31) mmol/L BUN (6.0-23.0) mg/dL Creatinine (0.6-1.5) mg/dL Est Cr Clr Drug Dosing mL/min Estimated GFR (MDRD) ml/min Glucose (60-110) mg/dL POC Glucose 126 H (60-110) mg/dL Calcium (8.8-10.8) mg/dL Magnesium (1.5-2.3) mEq/L Total Bilirubin (0.1-1.5) mg/dL AST (5-40) IU/L ALT (8-54) IU/L Alkaline Phosphatase (40-150) Total Protein (6.0-8.0) g/dL Albumin (3.5-5.0) g/dL Globulin (2.0-3.5) g/dL Albumin/Globulin Ratio (1.3-2.8) Amylase 28 (10-90) U/L Lipase < 9 (7-80) U/L Urine HCG, Qual (NEGATIVE) Blood Type Antibody Screen 08/14/17 08/14/17 08/14/17 Range/Units 12:14 12:15 12:15 WBC (4.0-11.0) K/uL RBC (4.30-5.90) M/uL Hgb (12.0-16.0) g/dL Hct (36.0-46.0) % MCV (80.0-98.0) fL MCH (27.0-32.0) pg MCHC (31.0-37.0) g/dL RDW Std Deviation (28.0-62.0) fl RDW Coeff of Titus (11.0-15.0) % Plt Count (150-400) K/uL MPV (7.40-12.00) fL Neut % (Auto) (48.0-80.0) % Lymph % (Auto) (16.0-40.0) % [place] % (Auto) (0.0-15.0) % Eos % (Auto) (0.0-7.0) % Baso % (Auto) (0.0-1.5) % Neut # (Auto) (1.4-5.7) K/uL Lymph # (Auto) (0.6-2.4) K/uL [place] # (Auto) (0.0-0.8) K/uL Eos # (Auto) (0.0-0.7) K/uL Baso # (Auto) (0.0-0.1) K/uL Nucleated RBC % /100WBC Nucleated RBCs # K/uL INR 1.31 H (0.86-1.11) APTT 31.6 H (18.6-31.3) SEC Sodium (136-146) mmol/L Potassium (3.5-5.1) mmol/L Chloride (98-110) mmol/L Carbon Dioxide (21-31) mmol/L BUN (6.0-23.0) mg/dL Creatinine (0.6-1.5) mg/dL Est Cr Clr Drug Dosing mL/min Estimated GFR (MDRD) ml/min Glucose (60-110) mg/dL POC Glucose (60-110) mg/dL Calcium (8.8-10.8) mg/dL Magnesium (1.5-2.3) mEq/L Total Bilirubin (0.1-1.5) mg/dL AST (5-40) IU/L ALT (8-54) IU/L Alkaline Phosphatase (40-150) Total Protein (6.0-8.0) g/dL Albumin (3.5-5.0) g/dL Globulin (2.0-3.5) g/dL Albumin/Globulin Ratio (1.3-2.8) Amylase (10-90) U/L Lipase (7-80) U/L Urine HCG, Qual NEGATIVE (NEGATIVE) Blood Type A POSITIVE Antibody Screen NEGATIVE 08/14/17 08/15/17 08/15/17 Range/Units 18:13 00:38 05:33 WBC 9.74 (4.0-11.0) K/uL RBC 3.29 L (4.30-5.90) M/uL Hgb 9.9 L (12.0-16.0) g/dL Hct 30.8 L (36.0-46.0) % MCV 93.6 (80.0-98.0) fL MCH 30.1 (27.0-32.0) pg MCHC 32.1 (31.0-37.0) g/dL RDW Std Deviation 55.4 (28.0-62.0) fl RDW Coeff of Titus 16 H (11.0-15.0) % Plt Count 203 (150-400) K/uL MPV 10.20 (7.40-12.00) fL Neut % (Auto) 86.4 H (48.0-80.0) % Lymph % (Auto) 7.8 L (16.0-40.0) % [place] % (Auto) 5.2 (0.0-15.0) % Eos % (Auto) 0.5 (0.0-7.0) % Baso % (Auto) 0.1 (0.0-1.5) % Neut # (Auto) 8.4 H (1.4-5.7) K/uL Lymph # (Auto) 0.8 (0.6-2.4) K/uL [place] # (Auto) 0.5 (0.0-0.8) K/uL Eos # (Auto) 0.1 (0.0-0.7) K/uL Baso # (Auto) 0.0 (0.0-0.1) K/uL Nucleated RBC % 0.0 /100WBC Nucleated RBCs # 0 K/uL INR (0.86-1.11) APTT (18.6-31.3) SEC Sodium (136-146) mmol/L Potassium (3.5-5.1) mmol/L Chloride (98-110) mmol/L Carbon Dioxide (21-31) mmol/L BUN (6.0-23.0) mg/dL Creatinine (0.6-1.5) mg/dL Est Cr Clr Drug Dosing mL/min Estimated GFR (MDRD) ml/min Glucose (60-110) mg/dL POC Glucose 121 H 96 (60-110) mg/dL Calcium (8.8-10.8) mg/dL Magnesium (1.5-2.3) mEq/L Total Bilirubin (0.1-1.5) mg/dL AST (5-40) IU/L ALT (8-54) IU/L Alkaline Phosphatase (40-150) Total Protein (6.0-8.0) g/dL Albumin (3.5-5.0) g/dL Globulin (2.0-3.5) g/dL Albumin/Globulin Ratio (1.3-2.8) Amylase (10-90) U/L Lipase (7-80) U/L Urine HCG, Qual (NEGATIVE) Blood Type Antibody Screen 08/15/17 08/15/17 08/15/17 Range/Units 05:33 05:33 05:33 WBC (4.0-11.0) K/uL RBC (4.30-5.90) M/uL Hgb (12.0-16.0) g/dL Hct (36.0-46.0) % MCV (80.0-98.0) fL MCH (27.0-32.0) pg MCHC (31.0-37.0) g/dL RDW Std Deviation (28.0-62.0) fl RDW Coeff of Titus (11.0-15.0) % Plt Count (150-400) K/uL MPV (7.40-12.00) fL Neut % (Auto) (48.0-80.0) % Lymph % (Auto) (16.0-40.0) % [place] % (Auto) (0.0-15.0) % Eos % (Auto) (0.0-7.0) % Baso % (Auto) (0.0-1.5) % Neut # (Auto) (1.4-5.7) K/uL Lymph # (Auto) (0.6-2.4) K/uL [place] # (Auto) (0.0-0.8) K/uL Eos # (Auto) (0.0-0.7) K/uL Baso # (Auto) (0.0-0.1) K/uL Nucleated RBC % /100WBC Nucleated RBCs # K/uL INR (0.86-1.11) APTT (18.6-31.3) SEC Sodium 139 (136-146) mmol/L Potassium 3.0 L (3.5-5.1) mmol/L Chloride 110 (98-110) mmol/L Carbon Dioxide 22 (21-31) mmol/L BUN 5 L (6.0-23.0) mg/dL Creatinine 0.5 L (0.6-1.5) mg/dL Est Cr Clr Drug Dosing 125.28 mL/min Estimated GFR (MDRD) > 60.0 ml/min Glucose 95 (60-110) mg/dL POC Glucose 86 (60-110) mg/dL Calcium 7.8 L (8.8-10.8) mg/dL Magnesium 1.5 (1.5-2.3) mEq/L Total Bilirubin 0.4 (0.1-1.5) mg/dL AST 11 (5-40) IU/L ALT 13 (8-54) IU/L Alkaline Phosphatase 51 (40-150) Total Protein 5.4 L (6.0-8.0) g/dL Albumin 2.9 L (3.5-5.0) g/dL Globulin 2.5 (2.0-3.5) g/dL Albumin/Globulin Ratio 1.2 L (1.3-2.8) Amylase (10-90) U/L Lipase (7-80) U/L Urine HCG, Qual (NEGATIVE) Blood Type Antibody Screen Flaco Results Last 24 Hours: Microbiology 08/14/17 14:55 Gram Stain - Final Peritoneal Fluid Med Orders - Current: Current Medications Acetaminophen (Tylenol) 650 mg PO Q4H PRN PRN Reason: Pain/Fever Last Admin: 08/15/17 00:43 Dose: 650 mg Fentanyl (Sublimaze) 50 mcg IVPUSH Q1H PRN PRN Reason: Pain (severe 7-10) Last Admin: 08/14/17 21:17 Dose: 50 mcg Ciprofloxacin/Dextrose 400 mg/ (Premix) 200 mls @ 200 mls/hr IV Q8H [facility] Last Admin: 08/15/17 05:05 Dose: 200 mls/hr Sodium Chloride (Normal Saline) 1,000 mls @ 150 mls/hr IV ASDIRECTED JANETT Last Admin: 08/14/17 20:46 Dose: 150 mls/hr Metronidazole 500 mg/ Premix 100 mls @ 100 mls/hr IV Q6H [facility] Last Admin: 08/15/17 02:04 Dose: 100 mls/hr Lorazepam (Ativan) 2 mg IVPUSH BEDTIME PRN PRN Reason: Anxiety Last Admin: 08/14/17 00:20 Dose: 2 mg Ondansetron HCl (Zofran) 4 mg IVPUSH Q4H PRN PRN Reason: Nausea/Vomiting Last Admin: 08/13/17 09:03 Dose: 4 mg Ondansetron HCl (Zofran) 4 mg IVPUSH Q8H PRN PRN Reason: Nausea/Vomiting Oxycodone/Acetaminophen (Percocet 325-5 Mg) 1 tab PO Q4H PRN PRN Reason: Pain Last Admin: 08/15/17 04:00 Dose: 1 tab Prazosin HCl (Minpress) 1 mg PO BEDTIME [facility] Last Admin: 08/14/17 20:29 Dose: Not Given Sertraline HCl (Zoloft) 50 mg PO DAILY [facility] Last Admin: 08/14/17 08:45 Dose: 50 mg Discontinued Medications Diphenhydramine HCl (Benadryl) Confirm Administered Dose 50 mg .ROUTE .STK-MED ONE Stop: 08/14/17 12:04 Enoxaparin Sodium (Lovenox) 40 mg SUBCUT DAILY [facility] Last Admin: 08/14/17 08:45 Dose: 40 mg Fentanyl (Sublimaze) 50 mcg IVPUSH ONETIME ONE Stop: 08/14/17 10:45 Last Admin: 08/14/17 11:39 Dose: 50 mcg Fentanyl (Sublimaze) Confirm Administered Dose 100 mcg .ROUTE .STK-MED ONE Stop: 08/14/17 12:02 Fentanyl (Sublimaze) 50 mcg IVPUSH Q5M PRN PRN Reason: Pain (severe 7-10) Stop: 08/14/17 18:00 Fentanyl (Sublimaze) Confirm Administered Dose 250 mcg .ROUTE .STK-MED ONE Stop: 08/14/17 14:18 Glycopyrrolate () Confirm Administered Dose 1 mg .ROUTE .STK-MED ONE Stop: 08/14/17 12:04 Hydromorphone HCl (Dilaudid) Confirm Administered Dose 2 mg .ROUTE .STK-MED ONE Stop: 08/14/17 12:02 Sodium Chloride (Normal Saline) 1,000 mls @ 999 mls/hr IV STAT ONE Stop: 08/13/17 06:11 Last Admin: 08/13/17 05:17 Dose: 999 mls/hr Sodium Chloride (Normal Saline) 1,000 mls @ 125 mls/hr IV ASDIRECTED [facility] Last Admin: 08/13/17 06:35 Dose: 125 mls/hr Potassium Chloride/Dextrose/Sod Cl (D5 1/2 Ns W/ 20 Meq/L Kcl) 1,000 mls @ 150 mls/hr IV ASDIRECTED [facility] Last Admin: 08/14/17 02:56 Dose: 150 mls/hr Metronidazole 500 mg/ Premix 100 mls @ 100 mls/hr IV Q6H [facility] Last Admin: 08/14/17 19:59 Dose: Not Given Bupivacaine HCl/Epinephrine Bitart (Sensorc Mpf 0.25%-Epi 1:216684) Confirm Administered Dose 30 mls @ as directed .ROUTE .STK-MED ONE Stop: 08/14/17 11:55 Lactated Ringer's (Ringers, Lactated) 1,000 mls @ 125 mls/hr IV ASDIRECTED [facility] Last Admin: 08/14/17 17:26 Dose: 125 mls/hr Lactated Ringer's (Ringers, Lactated) 1,000 mls @ 125 mls/hr IV ASDIRECTED [facility] Levofloxacin/Dextrose 750 mg/ (Premix) 150 mls @ 100 mls/hr IV Q24H [facility] Last Admin: 08/14/17 17:39 Dose: 100 mls/hr Sodium Chloride (Normal Saline) 1,000 mls @ 999 mls/hr IV .Bolus ONE Stop: 08/14/17 19:25 Last Admin: 08/14/17 18:30 Dose: 999 mls/hr Iopamidol (Isovue Multipack-370 (76%)) 100 ml IVPUSH ONETIME STA Stop: 08/14/17 09:24 Last Admin: 08/14/17 09:24 Dose: 100 ml Ketorolac Tromethamine (Toradol) Confirm Administered Dose 30 mg .ROUTE .STK- MED ONE Stop: 08/14/17 12:04 Lidocaine (Xylocaine-Mpf 2%) Confirm Administered Dose 5 ml .ROUTE .STK-MED ONE Stop: 08/14/17 12:04 Metoclopramide HCl (Reglan) 10 mg IV ONETIME ONE Stop: 08/13/17 06:30 Last Admin: 08/13/17 06:33 Dose: 10 mg Midazolam HCl (Versed 1 Mg/Ml) Confirm Administered Dose 2 mg .ROUTE .STK-MED ONE Stop: 08/14/17 12:02 Morphine Sulfate (Morphine) 2 mg IVPUSH Q4H PRN PRN Reason: Pain Last Admin: 08/13/17 16:52 Dose: 2 mg Morphine Sulfate (Morphine) 2 mg IVPUSH Q2H PRN PRN Reason: Pain Last Admin: 08/14/17 07:31 Dose: 2 mg Morphine Sulfate (Morphine) 3 mg IV Q4H PRN PRN Reason: Breakthrough Pain Neostigmine Methylsulfate (Neostigmine) Confirm Administered Dose 5 mg .ROUTE .STK-MED ONE Stop: 08/14/17 12:04 Octyl Cyanoacrylate (Dermabond Advance) Confirm Administered Dose 1 applic .ROUTE .STK-MED ONE Stop: 08/14/17 11:56 Ondansetron HCl (Zofran) Confirm Administered Dose 4 mg .ROUTE .STK-MED ONE Stop: 08/14/17 12:04 Phenylephrine HCl (Phenylephrine In Ns 100 Mcg/Ml) Confirm Administered Dose 1 mg .ROUTE .STK-MED ONE Stop: 08/14/17 14:06 Phenylephrine HCl (Phenylephrine In Ns 100 Mcg/Ml) 0.1 mg IVPUSH ONETIME ONE Stop: 08/14/17 18:15 Last Admin: 08/14/17 18:32 Dose: 0.1 mg Phenylephrine HCl (Phenylephrine In Ns 100 Mcg/Ml) 0.2 mg IVPUSH ONETIME ONE Stop: 08/14/17 18:50 Last Admin: 08/14/17 18:55 Dose: 0.2 mg Potassium Chloride (Potassium Chloride) 40 meq PO ONETIME ONE Stop: 08/15/17 07:46 Propofol (Diprivan 20 Ml) Confirm Administered Dose 200 mg .ROUTE .STK-MED ONE Stop: 08/14/17 12:02 Rocuronium [place] (Zemuron) Confirm Administered Dose 100 mg .ROUTE .STK-MED ONE Stop: 08/14/17 12:04 - Exam General: Alert, Oriented HEENT: Pupils Equal, EOMI Neck: Supple Lungs: Clear to Auscultation, Normal Respiratory Effort Cardiovascular: Regular Rate, Regular Rhythm GI/Abdominal Exam: Soft, Tender Back Exam: Normal Inspection, Full Range of Motion Extremities: Normal Inspection, Normal Range of Motion Skin: Warm, Dry, Intact Neurological: No New Focal Deficit Psy/Mental Status: Alert, Normal Affect, Normal Mood - Problem List Review Problem List Initiated/Reviewed/Updated: Yes - My Orders Last 24 Hours: My Active Orders 08/15/17 08:41 Transfer Patient (Change bed) [ADT] Routine - Plan Plan:: 41 yo female s/p perforated appendix surgery Dr. villalta recommended to start clear liquids. on cipro and flagyl. Pain control: on percocet, fentanyl Transfer to floor as she is clinically stable. PTSD: On zoloft. VTE proph: SCD boots. Dispo: 1 day
[2017-08-15] MEDS: Sertraline 50 MG Tab PO SCH (09:01)
--- NOTE | 2017-08-15 13:31 | OR ---
SURGEON: Gabriel Gray MD DATE OF PROCEDURE: 08/14/2017 PREOPERATIVE DIAGNOSIS: Acute perforated appendicitis. POSTOPERATIVE DIAGNOSIS: Acute appendicitis perforation with peritonitis. PROCEDURE PERFORMED: Laparoscopic appendectomy. COMPLICATIONS: None. FINDINGS: 1. Peritoneal fluid is yellow and cloudy and purulent. 2. Appendix has necrosis, perforated tip, and also felt to have appendicolith. INDICATIONS: CT scan shows perforated acute appendicitis, and risks and benefits discussed with the patient. The patient concurs to proceed with surgery. DESCRIPTION OF PROCEDURE: The patient was taken to the operating room and placed in a supine position. Upon induction of general endotracheal anesthesia, the patient's abdomen was prepped and draped in a sterile fashion. Time-out was being called. The patient was identified, procedure identified, antibiotic given, and procedure was then started. The patient got Lovenox 5 hours ago and was given 2 units of FFP for hemostasis. After assessment of appropriate landmarks, using Emanuel technique, a 12-mm trocar was placed supraumbilically and created a pneumoperitoneum and followed with placement of 5-mm trocar on the right upper quadrant and suprapubic. Once gained entrance to the peritoneal cavity, followed the taenia up the ascending colon, which is very dilated and suggests some ileus. A necrotic appendix was located, which is necrotic at the tip and also severely interacting with abdominal cavity. With gentle manipulation, the appendix was mobilized away from the abdominal wall, and using laparoscopic stapler, the mesoappendix was amputated at the base of the appendix where the connection of cecum is, and the appendix was also removed all the way at the base of the appendix, and the appendix was then retrieved using endoscopic bag. This was then followed with extensive irrigation. All the irrigation returned to be clear after 2 L of irrigation for the peritoneal fluid. Peritoneal fluid was also sent for Gram stain and C and S, and rechecked the staple line, hemostasis was good and no bleeding, and the trocar was then removed under direct video supervision, after a 10 flat STEVAN was introduced and exited from the low trocar site. Using a 2-0 silk, the drain was anchored to the skin, then the two trocars were then removed, and the umbilical site was repaired by use of 2-0 Vicryl. Skin approximated by use of skin yazan, and the 5-mm right upper quadrant trocar site was closed with skin yazan. This was then followed by appropriate dressing. The patient was awakened, extubated, and transferred to recovery in hemodynamically stable condition. The patient tolerated the procedure well. There were no intraoperative complications. As always, thank you for the kind referral. DASHA GUTIERREZ /[id number]
--- NOTE | 2017-08-15 13:32 | CR ---
EXAM DATE: 08/13/17 PATIENT'S AGE: 41 Patient: DONIS LOREDO Facility: [place], [place] Site . Site : 1975 Study: XRay Abdomen/Pelvis [id number]/2/[id number] 6:15:52 AM Ordering Physician: Reg Gallego Final Report: INDICATION: Nausea, vomiting and abdominal pain TECHNIQUE: Abdomen 3 view. COMPARISON: 08/12/2017 FINDINGS: Bowel: Minimally air distended small bowel loops in the left hemiabdomen but no definitive evidence for bowel obstruction. Soft tissues: No sign of free air. No sign of soft tissue mass. No suspicious calcifications. Bones: Unremarkable for age. IMPRESSION: A few minimally air distended small bowel loops in left mid abdomen but no evidence for bowel obstruction. Dictated by Merlin Srivastava MD @ 08/13/2017 6:27:09 AM Dictated by: Merlin Srivastava MD @ 08/13/2017 06:27:19 (Electronic Signature) Report Signed by Proxy. [facility] FACILITYWilfred
--- NOTE | 2017-08-15 15:43 | CT ---
EXAM DATE: 08/13/17 PATIENT'S AGE: 41 Patient: DONIS LOREDO Facility: [place], [place] Site . Site : 1975 Study: CT Abdomen/Pelvis w ricarda [id number] 9:26:28 AM Ordering Physician: Rock Solis Final Report: INDICATION: Abdominal pain TECHNIQUE: CT abdomen and pelvis acquired with 100 cc Isovue 370 IV contrast. COMPARISON: None. FINDINGS: LOWER CHEST: Mild bibasilar atelectasis. LIVER: Unremarkable. Normal in size and attenuation. No masses. GALLBLADDER AND BILE DUCTS: Unremarkable. No stones or inflammation. No biliary dilatation. PANCREAS: Unremarkable. No mass or inflammation. SPLEEN: Unremarkable. Normal in size. No masses. ADRENAL GLANDS: Unremarkable. No nodules. KIDNEYS: Unremarkable. No masses, stones, or hydronephrosis. GI TRACT: The appendix is enlarged and inflamed with adjacent free air consistent with perforated appendicitis. There is mild fluid retention in the distal small bowel and proximal colon consistent with the regional ileus. Remainder of the GI tract is unremarkable. VASCULATURE: Unremarkable. LYMPH NODES: No lymphadenopathy. OMENTUM/PERITONEUM/ABDOMINAL WALL: Unremarkable. No sign of mass or infiltration. No free air or significant free fluid. PELVIS: Unremarkable. BONES: Unremarkable for age. IMPRESSION: Acute perforated appendicitis. Remainder of the exam is unremarkable. Dictated by Danny Gabriel MD @ 08/14/2017 9:50:50 AM Dictated by: Danny Gabriel MD @ 08/14/2017 09:51:13 (Electronic Signature) Report Signed by Proxy. [facility]ITALWilfred
[2017-08-15] MEDS: Sodium Chloride 0.9% 1,000 ML IV SCH (17:13)
[2017-08-15] MEDS ORDERED: Oxymetazoline 0.05% Nasal Spray 15 ML Bottle NAS PRN (19:40)
--- NOTE | 2017-08-15 19:41 | PCM.SN ---
- Free Text/Narrative Note: afrin nasal spray prn for nasal congestion ordered.
[2017-08-15] MEDS: Prazosin 1 MG Cap PO SCH (21:47)
[2017-08-16] MEDS: Sodium Chloride 0.9% 1,000 ML IV SCH ×2 (02:07→13:15)
[2017-08-16] MEDS: metroNIDAZOLE/Normal Saline 500 MG in Premix Bag 1 BAG IV SCH ×4 (02:12→21:32)
[2017-08-16] MEDS: Acetaminophen/oxyCODONE 325-5 MG Tab PO PRN ×4 (04:31→23:49)
[2017-08-16] MEDS: Ciprofloxacin in D5W 400 MG in Premix Bag 1 BAG IV SCH ×6 (05:28→22:41)
[2017-08-16 06:03] LABS: CHLORIDE,CL 110 mmol/L (98-110); SODIUM,NA 140 mmol/L (136-146)
[2017-08-16] MEDS: Sertraline 50 MG Tab PO SCH (09:05)
[2017-08-16] MEDS: Cetirizine 10 MG Tab PO SCH (11:00)
--- NOTE | 2017-08-16 11:57 | PCM.PN ---
- General Info Date of Service: 08/16/17 Subjective Update: still feels dizzy while ambulating. Functional Status: Reports: Pain Controlled, Tolerating Diet, Ambulating, Urinating - Review of Systems General: Reports: No Symptoms HEENT: Reports: No Symptoms Pulmonary: Reports: No Symptoms Cardiovascular: Reports: No Symptoms Gastrointestinal: Reports: Abdominal Pain (improved) Musculoskeletal: Reports: No Symptoms Skin: Reports: No Symptoms Neurological: Reports: No Symptoms Psychiatric: Reports: No Symptoms - Patient Data Vitals - Most Recent: Last Vital Signs Temp 97.9 F 08/16/17 08:00 Pulse 97 08/16/17 08:00 Resp 20 08/16/17 08:00 BP 125/68 08/16/17 08:00 Pulse Ox 91 L 08/16/17 08:00 Weight - Most Recent: 94 kg I&O - Last 24 Hours: Intake & Output 08/15/17 08/16/17 08/16/17 22:59 06:59 14:59 Intake Total 1340 2446 Output Total 900 360 Balance 440 2086 Lab Results Last 24 Hours: Laboratory Results - last 24 hr 08/16/17 08/16/17 Range/Units 05:14 05:14 WBC 8.83 (4.0-11.0) K/uL RBC 3.23 L (4.30-5.90) M/uL Hgb 9.7 L (12.0-16.0) g/dL Hct 30.1 L (36.0-46.0) % MCV 93.2 (80.0-98.0) fL MCH 30.0 (27.0-32.0) pg MCHC 32.2 (31.0-37.0) g/dL RDW Std Deviation 53.7 (28.0-62.0) fl RDW Coeff of Titus 16 H (11.0-15.0) % Plt Count 199 (150-400) K/uL MPV 10.80 (7.40-12.00) fL Neut % (Auto) 83.6 H (48.0-80.0) % Lymph % (Auto) 9.1 L (16.0-40.0) % [place] % (Auto) 5.5 (0.0-15.0) % Eos % (Auto) 1.7 (0.0-7.0) % Baso % (Auto) 0.1 (0.0-1.5) % Neut # (Auto) 7.4 H (1.4-5.7) K/uL Lymph # (Auto) 0.8 (0.6-2.4) K/uL [place] # (Auto) 0.5 (0.0-0.8) K/uL Eos # (Auto) 0.2 (0.0-0.7) K/uL Baso # (Auto) 0.0 (0.0-0.1) K/uL Nucleated RBC % 0.0 /100WBC Nucleated RBCs # 0 K/uL Sodium 140 (136-146) mmol/L Potassium 3.0 L (3.5-5.1) mmol/L Chloride 110 (98-110) mmol/L Carbon Dioxide 23 (21-31) mmol/L BUN 3 L (6.0-23.0) mg/dL Creatinine 0.5 L (0.6-1.5) mg/dL Est Cr Clr Drug Dosing 126.19 mL/min Estimated GFR (MDRD) > 60.0 ml/min Glucose 97 (60-110) mg/dL Calcium 7.4 L (8.8-10.8) mg/dL Total Bilirubin 0.3 (0.1-1.5) mg/dL AST 29 (5-40) IU/L ALT 23 (8-54) IU/L Alkaline Phosphatase 60 (40-150) Total Protein 5.0 L (6.0-8.0) g/dL Albumin 2.9 L (3.5-5.0) g/dL Globulin 2.1 (2.0-3.5) g/dL Albumin/Globulin Ratio 1.38 Flaco Results Last 24 Hours: Microbiology 08/14/17 14:55 Gram Stain - Final Peritoneal Fluid Body Fluid Culture - Final Escherichia Coli Skin Susanna Anaerobic Culture - Final NO ANAEROBES ISOLATED 08/14/17 19:25 Aerobic Blood Culture - Preliminary Blood NO GROWTH AFTER 1 DAY Anaerobic Blood Culture - Preliminary NO GROWTH AFTER 1 DAY 08/14/17 19:17 Aerobic Blood Culture - Preliminary Blood NO GROWTH AFTER 1 DAY Anaerobic Blood Culture - Preliminary NO GROWTH AFTER 1 DAY 08/13/17 21:15 Urine Culture - Final Urine, Clean Catch MIXED SUSANNA >100,000 CFU/ML Med Orders - Current: Current Medications Acetaminophen (Tylenol) 650 mg PO Q4H PRN PRN Reason: Pain/Fever Last Admin: 08/15/17 11:52 Dose: 650 mg Cetirizine HCl (Zyrtec) 10 mg PO DAILY [facility] Fentanyl (Sublimaze) 50 mcg IVPUSH Q1H PRN PRN Reason: Pain (severe 7-10) Last Admin: 08/14/17 21:17 Dose: 50 mcg Ciprofloxacin/Dextrose 400 mg/ (Premix) 200 mls @ 200 mls/hr IV Q8H [facility] Last Infusion: 08/16/17 06:30 Dose: Infused Sodium Chloride (Normal Saline) 1,000 mls @ 125 mls/hr IV ASDIRECTED [facility] Last Admin: 08/16/17 02:07 Dose: 125 mls/hr Metronidazole 500 mg/ Premix 100 mls @ 100 mls/hr IV Q6H [facility] Last Admin: 08/16/17 09:04 Dose: 100 mls/hr Lorazepam (Ativan) 2 mg IVPUSH BEDTIME PRN PRN Reason: Anxiety Last Admin: 08/14/17 00:20 Dose: 2 mg Ondansetron HCl (Zofran) 4 mg IVPUSH Q4H PRN PRN Reason: Nausea/Vomiting Last Admin: 08/13/17 09:03 Dose: 4 mg Ondansetron HCl (Zofran) 4 mg IVPUSH Q8H PRN PRN Reason: Nausea/Vomiting Oxycodone/Acetaminophen (Percocet 325-5 Mg) 2 tab PO Q4H PRN PRN Reason: Pain Last Admin: 08/16/17 04:31 Dose: 2 tab Oxymetazoline HCl (Afrin Original 0.05% Nasal [place]) 0 ml JUSTO TID PRN PRN Reason: Other Last Admin: 08/15/17 20:57 Dose: 1 spr Prazosin HCl (Minpress) 1 mg PO BEDTIME [facility] Last Admin: 08/15/17 21:47 Dose: 1 mg Sertraline HCl (Zoloft) 50 mg PO DAILY [facility] Last Admin: 08/16/17 09:05 Dose: 50 mg Discontinued Medications Diphenhydramine HCl (Benadryl) Confirm Administered Dose 50 mg .ROUTE .STK-MED ONE Stop: 08/14/17 12:04 Enoxaparin Sodium (Lovenox) 40 mg SUBCUT DAILY [facility] Last Admin: 08/14/17 08:45 Dose: 40 mg Fentanyl (Sublimaze) 50 mcg IVPUSH ONETIME ONE Stop: 08/14/17 10:45 Last Admin: 08/14/17 11:39 Dose: 50 mcg Fentanyl (Sublimaze) Confirm Administered Dose 100 mcg .ROUTE .STK-MED ONE Stop: 08/14/17 12:02 Fentanyl (Sublimaze) 50 mcg IVPUSH Q5M PRN PRN Reason: Pain (severe 7-10) Stop: 08/14/17 18:00 Fentanyl (Sublimaze) Confirm Administered Dose 250 mcg .ROUTE .STK-MED ONE Stop: 08/14/17 14:18 Glycopyrrolate () Confirm Administered Dose 1 mg .ROUTE .STK-MED ONE Stop: 08/14/17 12:04 Hydromorphone HCl (Dilaudid) Confirm Administered Dose 2 mg .ROUTE .STK-MED ONE Stop: 08/14/17 12:02 Sodium Chloride (Normal Saline) 1,000 mls @ 999 mls/hr IV STAT ONE Stop: 08/13/17 06:11 Last Admin: 08/13/17 05:17 Dose: 999 mls/hr Sodium Chloride (Normal Saline) 1,000 mls @ 125 mls/hr IV ASDIRECTED [facility] Last Admin: 08/13/17 06:35 Dose: 125 mls/hr Potassium Chloride/Dextrose/Sod Cl (D5 1/2 Ns W/ 20 Meq/L Kcl) 1,000 mls @ 150 mls/hr IV ASDIRECTED [facility] Last Admin: 08/14/17 02:56 Dose: 150 mls/hr Metronidazole 500 mg/ Premix 100 mls @ 100 mls/hr IV Q6H [facility] Last Admin: 08/14/17 19:59 Dose: Not Given Bupivacaine HCl/Epinephrine Bitart (Sensorc Mpf 0.25%-Epi 1:[id number]) Confirm Administered Dose 30 mls @ as directed .ROUTE .STK-MED ONE Stop: 08/14/17 11:55 Lactated Ringer's (Ringers, Lactated) 1,000 mls @ 125 mls/hr IV ASDIRECTED [facility] Last Admin: 08/14/17 17:26 Dose: 125 mls/hr Lactated Ringer's (Ringers, Lactated) 1,000 mls @ 125 mls/hr IV ASDIRECTED [facility] Levofloxacin/Dextrose 750 mg/ (Premix) 150 mls @ 100 mls/hr IV Q24H [facility] Last Admin: 08/14/17 17:39 Dose: 100 mls/hr Sodium Chloride (Normal Saline) 1,000 mls @ 999 mls/hr IV .Bolus ONE Stop: 08/14/17 19:25 Last Admin: 08/14/17 18:30 Dose: 999 mls/hr Iopamidol (Isovue Multipack-370 (76%)) 100 ml IVPUSH ONETIME STA Stop: 08/14/17 09:24 Last Admin: 08/14/17 09:24 Dose: 100 ml Ketorolac Tromethamine (Toradol) Confirm Administered Dose 30 mg .ROUTE .STK- MED ONE Stop: 08/14/17 12:04 Lidocaine (Xylocaine-Mpf 2%) Confirm Administered Dose 5 ml .ROUTE .STK-MED ONE Stop: 08/14/17 12:04 Metoclopramide HCl (Reglan) 10 mg IV ONETIME ONE Stop: 08/13/17 06:30 Last Admin: 08/13/17 06:33 Dose: 10 mg Midazolam HCl (Versed 1 Mg/Ml) Confirm Administered Dose 2 mg .ROUTE .STK-MED ONE Stop: 08/14/17 12:02 Morphine Sulfate (Morphine) 2 mg IVPUSH Q4H PRN PRN Reason: Pain Last Admin: 08/13/17 16:52 Dose: 2 mg Morphine Sulfate (Morphine) 2 mg IVPUSH Q2H PRN PRN Reason: Pain Last Admin: 08/14/17 07:31 Dose: 2 mg Morphine Sulfate (Morphine) 3 mg IV Q4H PRN PRN Reason: Breakthrough Pain Neostigmine Methylsulfate (Neostigmine) Confirm Administered Dose 5 mg .ROUTE .STK-MED ONE Stop: 08/14/17 12:04 Octyl Cyanoacrylate (Dermabond Advance) Confirm Administered Dose 1 applic .ROUTE .STK-MED ONE Stop: 08/14/17 11:56 Ondansetron HCl (Zofran) Confirm Administered Dose 4 mg .ROUTE .STK-MED ONE Stop: 08/14/17 12:04 Oxycodone/Acetaminophen (Percocet 325-5 Mg) 1 tab PO Q4H PRN PRN Reason: Pain Last Admin: 08/15/17 13:10 Dose: 1 tab Phenylephrine HCl (Phenylephrine In Ns 100 Mcg/Ml) Confirm Administered Dose 1 mg .ROUTE .STK-MED ONE Stop: 08/14/17 14:06 Phenylephrine HCl (Phenylephrine In Ns 100 Mcg/Ml) 0.1 mg IVPUSH ONETIME ONE Stop: 08/14/17 18:15 Last Admin: 08/14/17 18:32 Dose: 0.1 mg Phenylephrine HCl (Phenylephrine In Ns 100 Mcg/Ml) 0.2 mg IVPUSH ONETIME ONE Stop: 08/14/17 18:50 Last Admin: 08/14/17 18:55 Dose: 0.2 mg Potassium Chloride (Potassium Chloride) 40 meq PO ONETIME ONE Stop: 08/15/17 07:46 Last Admin: 08/15/17 09:01 Dose: 40 meq Propofol (Diprivan 20 Ml) Confirm Administered Dose 200 mg .ROUTE .STK-MED ONE Stop: 08/14/17 12:02 Rocuronium [place] (Zemuron) Confirm Administered Dose 100 mg .ROUTE .STK-MED ONE Stop: 08/14/17 12:04 - Exam General: Alert, Oriented HEENT: Pupils Equal, EOMI Neck: Supple, Trachea Midline Lungs: Clear to Auscultation, Normal Respiratory Effort Cardiovascular: Regular Rate, Regular Rhythm GI/Abdominal Exam: Normal Bowel Sounds Back Exam: Normal Inspection Extremities: Normal Inspection Skin: Warm, Dry, Intact Neurological: No New Focal Deficit Psy/Mental Status: Alert, Normal Affect, Normal Mood - Problem List Review Problem List Initiated/Reviewed/Updated: Yes - My Orders Last 24 Hours: My Active Orders 08/15/17 15:19 Acetaminophen/oxyCODONE [Percocet 325-5 MG] 2 tab PO Q4H PRN 08/16/17 10:45 Cetirizine [ZyrTEC] 10 mg PO DAILY 08/16/17 Lunch Regular Diet [DIET] - Plan Plan:: 41 yo female s/p perforated appendix surgery Dr. villalta recommended to start clear liquids She is tolerating the diet. may advance diet to regular diet. on cipro and flagyl. Pain control: on percocet, fentanyl PTSD: On zoloft. Headache/congestion: zyrtec, afrin nasal spray. VTE proph: SCD boots. Dispo: 1 day
[2017-08-16] MEDS: Acetaminophen 325 MG Tab PO PRN (13:14)
--- NOTE | 2017-08-16 13:55 | PCM.SURGPN ---
- General Info Date of Service: 08/16/17 POD#: 2 Functional Status: Reports: Pain Controlled - Review of Systems General: Reports: No Symptoms Gastrointestinal: Reports: No Symptoms - Patient Data Vitals - Most Recent: Last Vital Signs Temp 97.3 F 08/16/17 12:00 Pulse 107 H 08/16/17 12:00 Resp 22 H 08/16/17 12:00 BP 124/73 08/16/17 12:00 Pulse Ox 91 L 08/16/17 12:00 Weight - Most Recent: 207 lb 3.752 oz I&O - Last 24 Hours: Intake & Output 08/15/17 08/16/17 08/16/17 22:59 06:59 14:59 Intake Total 1340 2446 Output Total 900 360 Balance 440 2086 Lab Results Last 24 Hrs: Laboratory Results - last 24 hr 08/16/17 08/16/17 Range/Units 05:14 05:14 WBC 8.83 (4.0-11.0) K/uL RBC 3.23 L (4.30-5.90) M/uL Hgb 9.7 L (12.0-16.0) g/dL Hct 30.1 L (36.0-46.0) % MCV 93.2 (80.0-98.0) fL MCH 30.0 (27.0-32.0) pg MCHC 32.2 (31.0-37.0) g/dL RDW Std Deviation 53.7 (28.0-62.0) fl RDW Coeff of [place] 16 H (11.0-15.0) % Plt Count 199 (150-400) K/uL MPV 10.80 (7.40-12.00) fL Neut % (Auto) 83.6 H (48.0-80.0) % Lymph % (Auto) 9.1 L (16.0-40.0) % [place] % (Auto) 5.5 (0.0-15.0) % Eos % (Auto) 1.7 (0.0-7.0) % Baso % (Auto) 0.1 (0.0-1.5) % Neut # (Auto) 7.4 H (1.4-5.7) K/uL Lymph # (Auto) 0.8 (0.6-2.4) K/uL [place] # (Auto) 0.5 (0.0-0.8) K/uL Eos # (Auto) 0.2 (0.0-0.7) K/uL Baso # (Auto) 0.0 (0.0-0.1) K/uL Nucleated RBC % 0.0 /100WBC Nucleated RBCs # 0 K/uL Sodium 140 (136-146) mmol/L Potassium 3.0 L (3.5-5.1) mmol/L Chloride 110 (98-110) mmol/L Carbon Dioxide 23 (21-31) mmol/L BUN 3 L (6.0-23.0) mg/dL Creatinine 0.5 L (0.6-1.5) mg/dL Est Cr Clr Drug Dosing 126.19 mL/min Estimated GFR (MDRD) > 60.0 ml/min Glucose 97 (60-110) mg/dL Calcium 7.4 L (8.8-10.8) mg/dL Total Bilirubin 0.3 (0.1-1.5) mg/dL AST 29 (5-40) IU/L ALT 23 (8-54) IU/L Alkaline Phosphatase 60 (40-150) Total Protein 5.0 L (6.0-8.0) g/dL Albumin 2.9 L (3.5-5.0) g/dL Globulin 2.1 (2.0-3.5) g/dL Albumin/Globulin Ratio 1.38 Flaco Results Last 24 Hrs: Microbiology 08/14/17 14:55 Gram Stain - Final Peritoneal Fluid Body Fluid Culture - Final Escherichia Coli Skin Susanna Anaerobic Culture - Final NO ANAEROBES ISOLATED 08/14/17 19:25 Aerobic Blood Culture - Preliminary Blood NO GROWTH AFTER 1 DAY Anaerobic Blood Culture - Preliminary NO GROWTH AFTER 1 DAY 08/14/17 19:17 Aerobic Blood Culture - Preliminary Blood NO GROWTH AFTER 1 DAY Anaerobic Blood Culture - Preliminary NO GROWTH AFTER 1 DAY 08/13/17 21:15 Urine Culture - Final Urine, Clean Catch MIXED SUSANNA >100,000 CFU/ML Med Orders - Current: Current Medications Acetaminophen (Tylenol) 650 mg PO Q4H PRN PRN Reason: Pain/Fever Last Admin: 08/16/17 13:14 Dose: 650 mg Cetirizine HCl (Zyrtec) 10 mg PO DAILY [facility] Last Admin: 08/16/17 11:00 Dose: 10 mg Fentanyl (Sublimaze) 50 mcg IVPUSH Q1H PRN PRN Reason: Pain (severe 7-10) Last Admin: 08/14/17 21:17 Dose: 50 mcg Ciprofloxacin/Dextrose 400 mg/ (Premix) 200 mls @ 200 mls/hr IV Q8H [facility] Last Admin: 08/16/17 13:16 Dose: 200 mls/hr Sodium Chloride (Normal Saline) 1,000 mls @ 125 mls/hr IV ASDIRECTED [facility] Last Admin: 08/16/17 13:15 Dose: 125 mls/hr Metronidazole 500 mg/ Premix 100 mls @ 100 mls/hr IV Q6H [facility] Last Admin: 08/16/17 09:04 Dose: 100 mls/hr Lorazepam (Ativan) 2 mg IVPUSH BEDTIME PRN PRN Reason: Anxiety Last Admin: 08/14/17 00:20 Dose: 2 mg Ondansetron HCl (Zofran) 4 mg IVPUSH Q4H PRN PRN Reason: Nausea/Vomiting Last Admin: 08/13/17 09:03 Dose: 4 mg Ondansetron HCl (Zofran) 4 mg IVPUSH Q8H PRN PRN Reason: Nausea/Vomiting Oxycodone/Acetaminophen (Percocet 325-5 Mg) 2 tab PO Q4H PRN PRN Reason: Pain Last Admin: 08/16/17 04:31 Dose: 2 tab Oxymetazoline HCl (Afrin Original 0.05% Nasal [place]) 0 ml JUSTO TID PRN PRN Reason: Other Last Admin: 08/15/17 20:57 Dose: 1 spr Prazosin HCl (Minpress) 1 mg PO BEDTIME [facility] Last Admin: 08/15/17 21:47 Dose: 1 mg Sertraline HCl (Zoloft) 50 mg PO DAILY [facility] Last Admin: 08/16/17 09:05 Dose: 50 mg Discontinued Medications Diphenhydramine HCl (Benadryl) Confirm Administered Dose 50 mg .ROUTE .STK-MED ONE Stop: 08/14/17 12:04 Enoxaparin Sodium (Lovenox) 40 mg SUBCUT DAILY [facility] Last Admin: 08/14/17 08:45 Dose: 40 mg Fentanyl (Sublimaze) 50 mcg IVPUSH ONETIME ONE Stop: 08/14/17 10:45 Last Admin: 08/14/17 11:39 Dose: 50 mcg Fentanyl (Sublimaze) Confirm Administered Dose 100 mcg .ROUTE .STK-MED ONE Stop: 08/14/17 12:02 Fentanyl (Sublimaze) 50 mcg IVPUSH Q5M PRN PRN Reason: Pain (severe 7-10) Stop: 08/14/17 18:00 Fentanyl (Sublimaze) Confirm Administered Dose 250 mcg .ROUTE .STK-MED ONE Stop: 08/14/17 14:18 Glycopyrrolate () Confirm Administered Dose 1 mg .ROUTE .STK-MED ONE Stop: 08/14/17 12:04 Hydromorphone HCl (Dilaudid) Confirm Administered Dose 2 mg .ROUTE .STK-MED ONE Stop: 08/14/17 12:02 Sodium Chloride (Normal Saline) 1,000 mls @ 999 mls/hr IV STAT ONE Stop: 08/13/17 06:11 Last Admin: 08/13/17 05:17 Dose: 999 mls/hr Sodium Chloride (Normal Saline) 1,000 [facility]ls @ [facility] Admin: 08/13/17 06:35 Dose: 125 mls/hr Potassium Chloride/Dextrose/Sod Cl (D5 1/2 Ns W/ 20 Meq/L Kcl) 1,000 mls @ 150 mls/hr IV ASDIRECTED [facility] Last Admin: 08/14/17 02:56 Dose: 150 mls/hr Metronidazole 500 mg/ Premix 100 mls @ 100 mls/hr IV Q6H [facility] Last Admin: 08/14/17 19:59 Dose: Not Given Bupivacaine HCl/Epinephrine Bitart (Sensor Mpf 0.25%-Epi 1:[id number]) Confirm Administered Dose 30 mls @ as directed .ROUTE .STK-MED ONE Stop: 08/14/17 11:55 Lactated Ringer's (Ringers, Lactated) 1,000 mls @ 125 mls/hr IV ASDIRECTED [facility] Last Admin: 08/14/17 17:26 Dose: 125 mls/hr Lactated Ringer's (Ringers, Lactated) 1,000 mls @ 125 [facility] Levofloxacin/Dextrose 750 mg/ (Premix) 150 mls @ 100 mls/hr IV Q24H [facility] Last Admin: 08/14/17 17:39 Dose: 100 mls/hr Sodium Chloride (Normal Saline) 1,000 mls @ 999 mls/hr IV .Bolus ONE Stop: 08/14/17 19:25 Last Admin: 08/14/17 18:30 Dose: 999 mls/hr Iopamidol (Isovue Multipack-370 (76%)) 100 ml IVPUSH ONETIME STA Stop: 08/14/17 09:24 Last Admin: 08/14/17 09:24 Dose: 100 ml Ketorolac Tromethamine (Toradol) Confirm Administered Dose 30 mg .ROUTE .STK- MED ONE Stop: 08/14/17 12:04 Lidocaine (Xylocaine-Mpf 2%) Confirm Administered Dose 5 ml .ROUTE .STK-MED ONE Stop: 08/14/17 12:04 Metoclopramide HCl (Reglan) 10 mg IV ONETIME ONE Stop: 08/13/17 06:30 Last Admin: 08/13/17 06:33 Dose: 10 mg Midazolam HCl (Versed 1 Mg/Ml) Confirm Administered Dose 2 mg .ROUTE .STK-MED ONE Stop: 08/14/17 12:02 Morphine Sulfate (Morphine) 2 mg IVPUSH Q4H PRN PRN Reason: Pain Last Admin: 08/13/17 16:52 Dose: 2 mg Morphine Sulfate (Morphine) 2 mg IVPUSH Q2H PRN PRN Reason: Pain Last Admin: 08/14/17 07:31 Dose: 2 mg Morphine Sulfate (Morphine) 3 mg IV Q4H PRN PRN Reason: Breakthrough Pain Neostigmine Methylsulfate (Neostigmine) Confirm Administered Dose 5 mg .ROUTE .STK-MED ONE Stop: 08/14/17 12:04 Octyl Cyanoacrylate (Dermabond Advance) Confirm Administered Dose 1 applic .ROUTE .STK-MED ONE Stop: 08/14/17 11:56 Ondansetron HCl (Zofran) Confirm Administered Dose 4 mg .ROUTE .STK-MED ONE Stop: 08/14/17 12:04 Oxycodone/Acetaminophen (Percocet 325-5 Mg) 1 tab PO Q4H PRN PRN Reason: Pain Last Admin: 08/15/17 13:10 Dose: 1 tab Phenylephrine HCl (Phenylephrine In Ns 100 Mcg/Ml) Confirm Administered Dose 1 mg .ROUTE .STK-MED ONE Stop: 08/14/17 14:06 Phenylephrine HCl (Phenylephrine In Ns 100 Mcg/Ml) 0.1 mg IVPUSH ONETIME ONE Stop: 08/14/17 18:15 Last Admin: 08/14/17 18:32 Dose: 0.1 mg Phenylephrine HCl (Phenylephrine In Ns 100 Mcg/Ml) 0.2 mg IVPUSH ONETIME ONE Stop: 08/14/17 18:50 Last Admin: 08/14/17 18:55 Dose: 0.2 mg Potassium Chloride (Potassium Chloride) 40 meq PO ONETIME ONE Stop: 08/15/17 07:46 Last Admin: 08/15/17 09:01 Dose: 40 meq Propofol (Diprivan 20 Ml) Confirm Administered Dose 200 mg .ROUTE .STK-MED ONE Stop: 08/14/17 12:02 Rocuronium [place] (Zemuron) Confirm Administered Dose 100 mg .ROUTE .STK-MED ONE Stop: 08/14/17 12:04 - Exam GI/Abdominal Exam: Soft, No Distention (wound drsg dry) - Problem List Review Problem List Initiated/Reviewed/Updated: Yes - My Orders Last 24 Hours: Active Orders 24 hr Category Date Time Status Regular Diet [DIET] Diet 08/16/17 Lunch Active Acetaminophen/oxyCODONE [Percocet 325-5 MG] Med 08/15/17 15:19 Active 2 tab PO Q4H PRN Cetirizine [ZyrTEC] Med 08/16/17 10:45 Active 10 mg PO DAILY Oxymetazoline [Afrin Original 0.05% Nasal [place]] Med 08/15/17 19:40 Active 0 ml JUSTO TID PRN Medication Orders Acetaminophen (Tylenol) 650 mg PO Q4H PRN PRN Reason: Pain/Fever Last Admin: 08/16/17 13:14 Dose: 650 mg Admin: 08/15/17 11:52 Dose: 650 mg Admin: 08/15/17 00:43 Dose: 650 mg Admin: 08/14/17 12:52 Dose: 650 mg Cetirizine HCl (Zyrtec) 10 mg PO DAILY [facility] Last Admin: 08/16/17 11:00 Dose: 10 mg Fentanyl (Sublimaze) 50 mcg IVPUSH Q1H PRN PRN Reason: Pain (severe 7-10) Last Admin: 08/14/17 21:17 Dose: 50 mcg Ciprofloxacin/Dextrose 400 mg/ (Premix) 200 mls @ 200 mls/hr IV Q8H [facility] Last Admin: 08/16/17 13:16 Dose: 200 mls/hr Infusion: 08/16/17 06:30 Dose: 200 mls/hr Admin: 08/16/17 05:28 Dose: 200 mls/hr Infusion: 08/15/17 23:10 Dose: 200 mls/hr Admin: 08/15/17 22:10 Dose: 200 mls/hr Infusion: 08/15/17 15:10 Dose: 200 mls/hr Admin: 08/15/17 14:10 Dose: 200 mls/hr Infusion: 08/15/17 06:05 Dose: 200 mls/hr Admin: 08/15/17 05:05 Dose: 200 mls/hr Infusion: 08/14/17 23:13 Dose: 200 mls/hr Admin: 08/14/17 22:13 Dose: 200 mls/hr Admin: 08/14/17 14:05 Dose: Not Given Infusion: 08/14/17 06:06 Dose: 200 mls/hr Admin: 08/14/17 05:06 Dose: 200 mls/hr Infusion: 08/13/17 23:32 Dose: 200 mls/hr Admin: 08/13/17 22:32 Dose: 200 mls/hr Sodium Chloride (Normal Saline) 1,000 mls @ 125 mls/hr IV ASDIRECTED [facility] Last Admin: 08/16/17 13:15 Dose: 125 mls/hr Infusion: 08/16/17 10:07 Dose: 125 mls/hr Admin: 08/16/17 02:07 Dose: 125 mls/hr Infusion: 08/16/17 02:02 Dose: 150 mls/hr Admin: 08/15/17 17:13 Dose: 150 mls/hr Infusion: 08/15/17 03:27 Dose: 150 mls/hr Admin: 08/14/17 20:46 Dose: 150 mls/hr Metronidazole 500 mg/ Premix 100 mls @ 100 mls/hr IV Q6H [facility] Last Admin: 08/16/17 09:04 Dose: 100 mls/hr Infusion: 08/16/17 03:15 Dose: 100 mls/hr Admin: 08/16/17 02:12 Dose: 100 mls/hr Infusion: 08/15/17 22:00 Dose: 100 mls/hr Admin: 08/15/17 20:58 Dose: 100 mls/hr Infusion: 08/15/17 16:40 Dose: 100 mls/hr Admin: 08/15/17 15:40 Dose: 100 mls/hr Infusion: 08/15/17 10:01 Dose: 100 mls/hr Admin: 08/15/17 09:01 Dose: 100 mls/hr Infusion: 08/15/17 03:04 Dose: 100 mls/hr Admin: 08/15/17 02:04 Dose: 100 mls/hr Infusion: 08/14/17 21:51 Dose: 100 mls/hr Admin: 08/14/17 20:51 Dose: 100 mls/hr Lorazepam (Ativan) 2 mg IVPUSH BEDTIME PRN PRN Reason: Anxiety Last Admin: 08/14/17 00:20 Dose: 2 mg Ondansetron HCl (Zofran) 4 mg IVPUSH Q4H PRN PRN Reason: Nausea/Vomiting Last Admin: 08/13/17 09:03 Dose: 4 mg Ondansetron HCl (Zofran) 4 mg IVPUSH Q8H PRN PRN Reason: Nausea/Vomiting Oxycodone/Acetaminophen (Percocet 325-5 Mg) 2 tab PO Q4H PRN PRN Reason: Pain Last Admin: 08/16/17 04:31 Dose: 2 tab Admin: 08/15/17 18:12 Dose: 2 tab Oxymetazoline HCl (Afrin Original 0.05% Nasal [place]) 0 ml JUSTO TID PRN PRN Reason: Other Last Admin: 08/15/17 20:57 Dose: 1 spr Prazosin HCl (Minpress) 1 mg PO BEDTIME JANETT Last Admin: 08/15/17 21:47 Dose: 1 mg Admin: 08/14/17 20:29 Dose: Admin: 08/13/17 22:31 Dose: 1 mg Sertraline HCl (Zoloft) 50 mg PO DAILY JANETT Last Admin: 08/16/17 09:05 Dose: 50 mg Admin: 08/15/17 09:01 Dose: 50 mg Admin: 08/14/17 08:45 Dose: 50 mg - Assessment Assessment (Free Text/Narrative):: doing well postop for perf appendicitis; woud dc iv abx to po abx tomorrow morning, po levaquin 750 qd X 10 days; and flagyl 500 mg tid X 10days; if continue to well on po, pain, and no fever, would plan to dc home in the morning ; fu w me 1 - 2 wks - Plan Plan (Free Text/Narrative):: doing well postop for perf appendicitis; woud dc iv abx to po abx tomorrow morning, po levaquin 750 qd X 10 days; and flagyl 500 mg tid X 10days; if continue to well on po, pain, and no fever, would plan to dc home in the morning ; fu w me 1 - 2 wks
[2017-08-16] MEDS ORDERED: Diazepam 2 MG Tab PO PRN (18:04)
[2017-08-16] MEDS: Prazosin 1 MG Cap PO SCH (21:31)
[2017-08-17] MEDS: Sodium Chloride 0.9% 1,000 ML IV SCH (01:07)
[2017-08-17] MEDS: metroNIDAZOLE/Normal Saline 500 MG in Premix Bag 1 BAG IV SCH ×2 (03:42→08:01)
[2017-08-17] MEDS: Acetaminophen/oxyCODONE 325-5 MG Tab PO PRN ×2 (05:34→13:05)
[2017-08-17] MEDS: Ciprofloxacin in D5W 400 MG in Premix Bag 1 BAG IV SCH ×2 (05:35)
[2017-08-17 05:40] LABS: CHLORIDE,CL 109 mmol/L (98-110); SODIUM,NA 141 mmol/L (136-146)
[2017-08-17] MEDS: Cetirizine 10 MG Tab PO SCH (08:01)
[2017-08-17] MEDS: Sertraline 50 MG Tab PO SCH (08:02)
[2017-08-17] MEDS ORDERED: Potassium Chloride 10% 20 MEQ/15 ML Soln 30 ML UD Cup PO ONE (08:54)
--- NOTE | 2017-08-17 09:47 | PCM.DCSUM1 ---
Discharge Summary - Hospital Course Free Text/Narrative:: 41 yo female admitted for perforated appendicitis. Dr. Gray general surgery is consulted where laproscopic appendectomy was performed and STEVAN drain was placed. Her procedure went well without complications. She was started on cipro and flagyl. Her pain was controlled with diluadid. She was slowly advanced to regular diet where she tolerated well. She has minimal abdominal discomfort which is controlled with PO pain control. She had a bowel movement. Her VSS. She is discharged in stable condition where general surgery was okay with her going home. She is discharged with post op medications and antibiotics along with wound care instructions. She requested a walker since it is to difficult to get around her house and she is status post surgery. A script for walker given. She is to follow up with her PCP in [facility] surgery Dr. GRAY as instructed. - Discharge Data Discharge Date: 08/17/17 Discharge Disposition: Home, Self-Care 01 Condition: Good - Patient Summary/Data Operative Procedure(s) Performed: appendectomy, laparoscopic - Patient Instructions Diet: Regular Diet as Tolerated Activity: As Tolerated Driving: Do Not Drive Showering/Bathing: May Shower Notify Provider of: Fever, Increased Pain, Swelling and Redness, Drainage, Nausea and/or Vomiting - Discharge Plan Prescriptions/Med Rec: Docusate Sodium [Colace] 100 mg PO DAILY 5 Days #5 cap Levofloxacin [Levaquin] 750 mg PO DAILY 7 Days #7 tablet oxyCODONE HCl/Acetaminophen [Percocet 5-325 mg Tablet] 1 each PO Q6H PRN #30 tablet PRN Reason: Pain Home Medications: Home Meds Naproxen 220 mg PO ASDIRECTED PRN 08/13/17 [History] Prazosin [Minpress] 1 mg PO BEDTIME 08/13/17 [History] Sertraline HCl [Zoloft] 1 tab PO DAILY 08/13/17 [History] Solifenacin Succinate [Vesicare] 10 mg PO DAILY 08/13/17 [History] diphenhydrAMINE [Benadryl] 25 mg PO Q6HR 08/13/17 [History] Docusate Sodium [Colace] 100 mg PO DAILY 5 Days #5 cap 08/17/17 [Rx] Levofloxacin [Levaquin] 750 mg PO DAILY 7 Days #7 tablet 08/17/17 [Rx] oxyCODONE HCl/Acetaminophen [Percocet 5-325 mg Tablet] 1 each PO Q6H PRN #30 tablet 08/17/17 [Rx] Patient Handouts: Acetaminophen; Oxycodone capsules, Laparoscopic Appendectomy , Adult, Care After, [id number], Levofloxacin tablets, Docusate capsules Referrals: Gabriel Gray MD [Physician] - 08/22/17 2:30 pm Puja Tejeda PA [Primary Care Provider] - 08/24/17 2:00 pm - General Info Date of Service: 08/17/17 Functional Status: Reports: Pain Controlled - Review of Systems General: Reports: No Symptoms HEENT: Reports: No Symptoms Pulmonary: Reports: No Symptoms Cardiovascular: Reports: No Symptoms Gastrointestinal: Reports: Abdominal Pain, Other (improving) Musculoskeletal: Reports: No Symptoms Skin: Reports: No Symptoms Neurological: Reports: No Symptoms Psychiatric: Reports: No Symptoms - Patient Data Vitals - Most Recent: Last Vital Signs Temp 97.6 F 08/17/17 08:00 Pulse 97 08/17/17 08:00 Resp 18 08/17/17 08:00 BP 117/57 L 08/17/17 08:00 Pulse Ox 93 L 08/17/17 08:00 Weight - Most Recent: 95.5 kg I&O - Last 24 hours: Intake & Output 08/16/17 08/17/17 08/17/17 22:59 06:59 14:59 Intake Total 820 500 Output Total 695 370 Balance 125 130 Lab Results - Last 24 hrs: Laboratory Results - last 24 hr 08/17/17 08/17/17 Range/Units 04:42 04:42 WBC 7.21 (4.0-11.0) K/uL RBC 3.18 L (4.30-5.90) M/uL Hgb 9.4 L (12.0-16.0) g/dL Hct 29.4 L (36.0-46.0) % MCV 92.5 (80.0-98.0) fL MCH 29.6 (27.0-32.0) pg MCHC 32.0 (31.0-37.0) g/dL RDW Std Deviation 52.7 (28.0-62.0) fl RDW Coeff of [place] 16 H (11.0-15.0) % Plt Count 257 (150-400) K/uL MPV 10.20 (7.40-12.00) fL Neut % (Auto) 75.0 (48.0-80.0) % Lymph % (Auto) 12.6 L (16.0-40.0) % [place] % (Auto) 8.3 (0.0-15.0) % Eos % (Auto) 4.0 (0.0-7.0) % Baso % (Auto) 0.1 (0.0-1.5) % Neut # (Auto) 5.4 (1.4-5.7) K/uL Lymph # (Auto) 0.9 (0.6-2.4) K/uL [place] # (Auto) 0.6 (0.0-0.8) K/uL Eos # (Auto) 0.3 (0.0-0.7) K/uL Baso # (Auto) 0.0 (0.0-0.1) K/uL Nucleated RBC % 0.0 /100WBC Nucleated RBCs # 0 K/uL Sodium 141 (136-146) mmol/L Potassium 3.0 L (3.5-5.1) mmol/L Chloride 109 (98-110) mmol/L Carbon Dioxide 26 (21-31) mmol/L BUN 2 L (6.0-23.0) mg/dL Creatinine 0.6 (0.6-1.5) mg/dL Est Cr Clr Drug Dosing 105.16 mL/min Estimated GFR (MDRD) > 60.0 ml/min Glucose 87 (60-110) mg/dL Calcium 7.6 L (8.8-10.8) mg/dL Total Bilirubin 0.2 (0.1-1.5) mg/dL AST 49 H (5-40) IU/L ALT 40 (8-54) IU/L Alkaline Phosphatase 70 (40-150) Total Protein 4.8 L (6.0-8.0) g/dL Albumin 2.8 L (3.5-5.0) g/dL Globulin 2.0 (2.0-3.5) g/dL Albumin/Globulin Ratio 1.4 (1.3-2.8) DAVID Results - Last 24 hrs: Microbiology 08/14/17 19:25 Aerobic Blood Culture - Preliminary Blood NO GROWTH AFTER 2 DAYS Anaerobic Blood Culture - Preliminary NO GROWTH AFTER 2 DAYS 08/14/17 19:17 Aerobic Blood Culture - Preliminary Blood NO GROWTH AFTER 2 DAYS Anaerobic Blood Culture - Preliminary NO GROWTH AFTER 2 DAYS 08/14/17 14:55 Gram Stain - Final Peritoneal Fluid Body Fluid Culture - Final Escherichia Coli Skin Kenna Anaerobic Culture - Final NO ANAEROBES ISOLATED Med Orders - Current: Current Medications Acetaminophen (Tylenol) 650 mg PO Q4H PRN PRN Reason: Pain/Fever Last Admin: 08/16/17 13:14 Dose: 650 mg Cetirizine HCl (Zyrtec) 10 mg PO DAILY [facility] Last Admin: 08/17/17 08:01 Dose: 10 mg Diazepam (Valium) 2 mg PO Q12H PRN PRN Reason: Anxiety Fentanyl (Sublimaze) 50 mcg IVPUSH Q1H PRN PRN Reason: Pain (severe 7-10) Last Admin: 08/14/17 21:17 Dose: 50 mcg Ciprofloxacin/Dextrose 400 mg/ (Premix) 200 mls @ 200 mls/hr IV Q8H [facility] Last Admin: 08/17/17 05:35 Dose: 200 mls/hr Sodium Chloride (Normal Saline) 1,000 mls @ 125 mls/hr IV ASDIRECTED [facility] Last Admin: 08/17/17 01:07 Dose: 125 mls/hr Metronidazole 500 mg/ Premix 100 mls @ 100 mls/hr IV Q6H [facility] Last Admin: 08/17/17 08:01 Dose: 100 mls/hr Lorazepam (Ativan) 2 mg IVPUSH BEDTIME PRN PRN Reason: Anxiety Last Admin: 08/14/17 00:20 Dose: 2 mg Ondansetron HCl (Zofran) 4 mg IVPUSH Q4H PRN PRN Reason: Nausea/Vomiting Last Admin: 08/13/17 09:03 Dose: 4 mg Ondansetron HCl (Zofran) 4 mg IVPUSH Q8H PRN PRN Reason: Nausea/Vomiting Oxycodone/Acetaminophen (Percocet 325-5 Mg) 2 tab PO Q4H PRN PRN Reason: Pain Last Admin: 08/17/17 05:34 Dose: 2 tab Oxymetazoline HCl (Afrin Original 0.05% Nasal [place]) 0 ml JUSTO TID PRN PRN Reason: Other Last Admin: 08/15/17 20:57 Dose: 1 spr Prazosin HCl (Minpress) 1 mg PO BEDTIME [facility] Last Admin: 08/16/17 21:31 Dose: 1 mg Sertraline HCl (Zoloft) 50 mg PO DAILY [facility] Last Admin: 08/17/17 08:02 Dose: 50 mg Discontinued Medications Diphenhydramine HCl (Benadryl) Confirm Administered Dose 50 mg .ROUTE .STK-MED ONE Stop: 08/14/17 12:04 Enoxaparin Sodium (Lovenox) 40 mg SUBCUT DAILY [facility] Last Admin: 08/14/17 08:45 Dose: 40 mg Fentanyl (Sublimaze) 50 mcg IVPUSH ONETIME ONE Stop: 08/14/17 10:45 Last Admin: 08/14/17 11:39 Dose: 50 mcg Fentanyl (Sublimaze) Confirm Administered Dose 100 mcg .ROUTE .STK-MED ONE Stop: 08/14/17 12:02 Fentanyl (Sublimaze) 50 mcg IVPUSH Q5M PRN PRN Reason: Pain (severe 7-10) Stop: 08/14/17 18:00 Fentanyl (Sublimaze) Confirm Administered Dose 250 mcg .ROUTE .STK-MED ONE Stop: 08/14/17 14:18 Glycopyrrolate () Confirm Administered Dose 1 mg .ROUTE .STK-MED ONE Stop: 08/14/17 12:04 Hydromorphone HCl (Dilaudid) Confirm Administered Dose 2 mg .ROUTE .STK-MED ONE Stop: 08/14/17 12:02 Sodium Chloride (Normal Saline) 1,000 mls @ 999 mls/hr IV STAT ONE Stop: 08/13/17 06:11 Last Admin: 08/13/17 05:17 Dose: 999 mls/hr Sodium Chloride (Normal Saline) 1,000 mls @ 125 mls/hr IV ASDIRECTED [facility] Last Admin: 08/13/17 06:35 Dose: 125 mls/hr Potassium Chloride/Dextrose/Sod Cl (D5 1/2 Ns W/ 20 Meq/L Kcl) 1,000 mls @ 150 mls/hr IV ASDIRECTED [facility] Last Admin: 08/14/17 02:56 Dose: 150 mls/hr Metronidazole 500 mg/ Premix 100 mls @ 100 mls/hr IV Q6H [facility] Last Admin: 08/14/17 19:59 Dose: Not Given Bupivacaine HCl/Epinephrine Bitart (Sensorc Mpf 0.25%-Epi [id number]) Confirm Administered Dose 30 mls @ as directed .ROUTE .STK-MED ONE Stop: 08/14/17 11:55 Lactated Ringer's (Ringers, Lactated) 1,000 mls @ 125 mls/hr IV ASDIRECTED JANETT Last Admin: 08/14/17 17:26 Dose: 125 mls/hr Lactated Ringer's (Ringers, Lactated) 1,000 mls @ 125 mls/hr IV ASDIRECTED [facility] Levofloxacin/Dextrose 750 mg/ (Premix) 150 mls @ 100 mls/hr IV Q24H [facility] Last Admin: 08/14/17 17:39 Dose: 100 mls/hr Sodium Chloride (Normal Saline) 1,000 mls @ 999 mls/hr IV .Bolus ONE Stop: 08/14/17 19:25 Last Admin: 08/14/17 18:30 Dose: 999 mls/hr Iopamidol (Isovue Multipack-370 (76%)) 100 ml IVPUSH ONETIME STA Stop: 08/14/17 09:24 Last Admin: 08/14/17 09:24 Dose: 100 ml Ketorolac Tromethamine (Toradol) Confirm Administered Dose 30 mg .ROUTE .STK- MED ONE Stop: 08/14/17 12:04 Lidocaine (Xylocaine-Mpf 2%) Confirm Administered Dose 5 ml .ROUTE .STK-MED ONE Stop: 08/14/17 12:04 Metoclopramide HCl (Reglan) 10 mg IV ONETIME ONE Stop: 08/13/17 06:30 Last Admin: 08/13/17 06:33 Dose: 10 mg Midazolam HCl (Versed 1 Mg/Ml) Confirm Administered Dose 2 mg .ROUTE .STK-MED ONE Stop: 08/14/17 12:02 Morphine Sulfate (Morphine) 2 mg IVPUSH Q4H PRN PRN Reason: Pain Last Admin: 08/13/17 16:52 Dose: 2 mg Morphine Sulfate (Morphine) 2 mg IVPUSH Q2H PRN PRN Reason: Pain Last Admin: 08/14/17 07:31 Dose: 2 mg Morphine Sulfate (Morphine) 3 mg IV Q4H PRN PRN Reason: Breakthrough Pain Neostigmine Methylsulfate (Neostigmine) Confirm Administered Dose 5 mg .ROUTE .STK-MED ONE Stop: 08/14/17 12:04 Octyl Cyanoacrylate (Dermabond Advance) Confirm Administered Dose 1 applic .ROUTE .STK-MED ONE Stop: 08/14/17 11:56 Ondansetron HCl (Zofran) Confirm Administered Dose 4 mg .ROUTE .STK-MED ONE Stop: 08/14/17 12:04 Oxycodone/Acetaminophen (Percocet 325-5 Mg) 1 tab PO Q4H PRN PRN Reason: Pain Last Admin: 08/15/17 13:10 Dose: 1 tab Phenylephrine HCl (Phenylephrine In Ns 100 Mcg/Ml) Confirm Administered Dose 1 mg .ROUTE .STK-MED ONE Stop: 08/14/17 14:06 Phenylephrine HCl (Phenylephrine In Ns 100 Mcg/Ml) 0.1 mg IVPUSH ONETIME ONE Stop: 08/14/17 18:15 Last Admin: 08/14/17 18:32 Dose: 0.1 mg Phenylephrine HCl (Phenylephrine In Ns 100 Mcg/Ml) 0.2 mg IVPUSH ONETIME ONE Stop: 08/14/17 18:50 Last Admin: 08/14/17 18:55 Dose: 0.2 mg Potassium Chloride (Potassium Chloride) 40 meq PO ONETIME ONE Stop: 08/15/17 07:46 Last Admin: 08/15/17 09:01 Dose: 40 meq Potassium Chloride (Potassium Chloride) 40 meq PO ONETIME ONE Stop: 08/17/17 08:55 Propofol (Diprivan 20 Ml) Confirm Administered Dose 200 mg .ROUTE .STK-MED ONE Stop: 08/14/17 12:02 Rocuronium [place] (Zemuron) Confirm Administered Dose 100 mg .ROUTE .STK-MED ONE Stop: 08/14/17 12:04 - Exam General: Reports: Alert, Oriented HEENT: Reports: Pupils Equal, EOMI Neck: Reports: Supple, Trachea Midline Lungs: Reports: Clear to Auscultation, Normal Respiratory Effort Cardiovascular: Reports: Regular Rate, Regular Rhythm GI/Abdominal Exam: Soft, Tender (minimal tenderness. NO rebound No guarding) Back Exam: Reports: Normal Inspection Extremities: Normal Inspection Skin: Reports: Warm, Dry, Intact Neurological: Reports: No New Focal Deficit Psy/Mental Status: Reports: Alert, Normal Affect, Normal Mood *Q Meaningful Use (DIS) - VTE *Q VTE Criteria *Q: - Stroke *Q Stroke Criteria *Q: - AMI *Q AMI Criteria *Q:
--- NOTE | 2017-08-17 10:22 | PCM.SURGPN ---
- General Info Date of Service: 08/17/17 POD#: 3 Functional Status: Reports: Pain Controlled - Review of Systems General: Reports: No Symptoms Gastrointestinal: Reports: No Symptoms - Patient Data Vitals - Most Recent: Last Vital Signs Temp 97.6 F 08/17/17 08:00 Pulse 97 08/17/17 08:00 Resp 18 08/17/17 08:00 BP 117/57 L 08/17/17 08:00 Pulse Ox 93 L 08/17/17 08:00 Weight - Most Recent: 210 lb 8.663 oz I&O - Last 24 Hours: Intake & Output 08/16/17 08/17/17 08/17/17 22:59 06:59 14:59 Intake Total 820 500 572 Output Total 695 370 265 Balance 125 130 307 Lab Results Last 24 Hrs: Laboratory Results - last 24 hr 08/17/17 08/17/17 Range/Units 04:42 04:42 WBC 7.21 (4.0-11.0) K/uL RBC 3.18 L (4.30-5.90) M/uL Hgb 9.4 L (12.0-16.0) g/dL Hct 29.4 L (36.0-46.0) % MCV 92.5 (80.0-98.0) fL MCH 29.6 (27.0-32.0) pg MCHC 32.0 (31.0-37.0) g/dL RDW Std Deviation 52.7 (28.0-62.0) fl RDW Coeff of Titus 16 H (11.0-15.0) % Plt Count 257 (150-400) K/uL MPV 10.20 (7.40-12.00) fL Neut % (Auto) 75.0 (48.0-80.0) % Lymph % (Auto) 12.6 L (16.0-40.0) % [place] % (Auto) 8.3 (0.0-15.0) % Eos % (Auto) 4.0 (0.0-7.0) % Baso % (Auto) 0.1 (0.0-1.5) % Neut # (Auto) 5.4 (1.4-5.7) K/uL Lymph # (Auto) 0.9 (0.6-2.4) K/uL [place] # (Auto) 0.6 (0.0-0.8) K/uL Eos # (Auto) 0.3 (0.0-0.7) K/uL Baso # (Auto) 0.0 (0.0-0.1) K/uL Nucleated RBC % 0.0 /100WBC Nucleated RBCs # 0 K/uL Sodium 141 (136-146) mmol/L Potassium 3.0 L (3.5-5.1) mmol/L Chloride 109 (98-110) mmol/L Carbon Dioxide 26 (21-31) mmol/L BUN 2 L (6.0-23.0) mg/dL Creatinine 0.6 (0.6-1.5) mg/dL Est Cr Clr Drug Dosing 105.16 mL/min Estimated GFR (MDRD) > 60.0 ml/min Glucose 87 (60-110) mg/dL Calcium 7.6 L (8.8-10.8) mg/dL Total Bilirubin 0.2 (0.1-1.5) mg/dL AST 49 H (5-40) IU/L ALT 40 (8-54) IU/L Alkaline Phosphatase 70 (40-150) Total Protein 4.8 L (6.0-8.0) g/dL Albumin 2.8 L (3.5-5.0) g/dL Globulin 2.0 (2.0-3.5) g/dL Albumin/Globulin Ratio 1.4 (1.3-2.8) Flaco Results Last 24 Hrs: Microbiology 08/14/17 19:25 Aerobic Blood Culture - Preliminary Blood NO GROWTH AFTER 2 DAYS Anaerobic Blood Culture - Preliminary NO GROWTH AFTER 2 DAYS 08/14/17 19:17 Aerobic Blood Culture - Preliminary Blood NO GROWTH AFTER 2 DAYS Anaerobic Blood Culture - Preliminary NO GROWTH AFTER 2 DAYS 08/14/17 14:55 Gram Stain - Final Peritoneal Fluid Body Fluid Culture - Final Escherichia Coli Skin [place] Anaerobic Culture - Final NO ANAEROBES ISOLATED Med Orders - Current: Current Medications Acetaminophen (Tylenol) 650 mg PO Q4H PRN PRN Reason: Pain/Fever Last Admin: 08/16/17 13:14 Dose: 650 mg Cetirizine HCl (Zyrtec) 10 mg PO DAILY [facility]ANETT Last Admin: 08/17/17 08:01 Dose: 10 mg Diazepam (Valium) 2 mg PO Q12H PRN PRN Reason: Anxiety Fentanyl (Sublimaze) 50 mcg IVPUSH Q1H PRN PRN Reason: Pain (severe 7-10) Last Admin: 08/14/17 21:17 Dose: 50 mcg Ciprofloxacin/Dextrose 400 mg/ (Premix) 200 mls @ 200 mls/hr IV Q8H [facility] Last Admin: 08/17/17 05:35 Dose: 200 mls/hr Sodium Chloride (Normal Saline) 1,000 mls @ 125 mls/hr IV ASDIRECTED [facility] Last Admin: 08/17/17 01:07 Dose: 125 mls/hr Metronidazole 500 mg/ Premix 100 mls @ 100 mls/hr IV Q6H [facility] Last Admin: 08/17/17 08:01 Dose: 100 mls/hr Lorazepam (Ativan) 2 mg IVPUSH BEDTIME PRN PRN Reason: Anxiety Last Admin: 08/14/17 00:20 Dose: 2 mg Ondansetron HCl (Zofran) 4 mg IVPUSH Q4H PRN PRN Reason: Nausea/Vomiting Last Admin: 08/13/17 09:03 Dose: 4 mg Ondansetron HCl (Zofran) 4 mg IVPUSH Q8H PRN PRN Reason: Nausea/Vomiting Oxycodone/Acetaminophen (Percocet 325-5 Mg) 2 tab PO Q4H PRN PRN Reason: Pain Last Admin: 08/17/17 05:34 Dose: 2 tab Oxymetazoline HCl (Afrin Original 0.05% Nasal [place]) 0 ml JUSTO TID PRN PRN Reason: Other Last Admin: 08/15/17 20:57 Dose: 1 spr Prazosin HCl (Minpress) 1 mg PO BEDTIME [facility] Last Admin: 08/16/17 21:31 Dose: 1 mg Sertraline HCl (Zoloft) 50 mg PO DAILY [facility] Last Admin: 08/17/17 08:02 Dose: 50 mg Discontinued Medications Diphenhydramine HCl (Benadryl) Confirm Administered Dose 50 mg .ROUTE .STK-MED ONE Stop: 08/14/17 12:04 Enoxaparin Sodium (Lovenox) 40 mg SUBCUT DAILY [facility] Last Admin: 08/14/17 08:45 Dose: 40 mg Fentanyl (Sublimaze) 50 mcg IVPUSH ONETIME ONE Stop: 08/14/17 10:45 Last Admin: 08/14/17 11:39 Dose: 50 mcg Fentanyl (Sublimaze) Confirm Administered Dose 100 mcg .ROUTE .STK-MED ONE Stop: 08/14/17 12:02 Fentanyl (Sublimaze) 50 mcg IVPUSH Q5M PRN PRN Reason: Pain (severe 7-10) Stop: 08/14/17 18:00 Fentanyl (Sublimaze) Confirm Administered Dose 250 mcg .ROUTE .STK-MED ONE Stop: 08/14/17 14:18 Glycopyrrolate () Confirm Administered Dose 1 mg .ROUTE .STK-MED ONE Stop: 08/14/17 12:04 Hydromorphone HCl (Dilaudid) Confirm Administered Dose 2 mg .ROUTE .STK-MED ONE Stop: 08/14/17 12:02 Sodium Chloride (Normal Saline) 1,000 mls @ 999 mls/hr IV STAT ONE Stop: 08/13/17 06:11 Last Admin: 08/13/17 05:17 Dose: 999 mls/hr Sodium Chloride (Normal Saline) 1,000 mls @ 125 mls/hr IV ASDIRECTED [facility] Last Admin: 08/13/17 06:35 Dose: 125 mls/hr Potassium Chloride/Dextrose/Sod Cl (D5 1/2 Ns W/ 20 Meq/L Kcl) 1,000 mls @ 150 mls/hr IV ASDIRECTED [facility] Last Admin: 08/14/17 02:56 Dose: 150 mls/hr Metronidazole 500 mg/ Premix 100 mls @ 100 mls/hr IV Q6H [facility] Last Admin: 08/14/17 19:59 Dose: Not Given Bupivacaine HCl/Epinephrine Bitart ([facility] Mpf 0.25%-Epi [id number]) Confirm Administered Dose 30 mls @ as directed .ROUTE .STK-MED ONE Stop: 08/14/17 11:55 Lactated Ringer's (Ringers, Lactated) 1,000 mls @ 125 mls/hr IV ASDIRECTED [facility] Last Admin: 08/14/17 17:26 Dose: 125 mls/hr Lactated Ringer's (Ringers, Lactated) 1,000 mls @ 125 mls/hr IV ASDIRECTED [facility] Levofloxacin/Dextrose 750 mg/ (Premix) 150 mls @ 100 mls/hr IV Q24H [facility] Last Admin: 08/14/17 17:39 Dose: 100 mls/hr Sodium Chloride (Normal Saline) 1,000 mls @ 999 mls/hr IV .Bolus ONE Stop: 08/14/17 19:25 Last Admin: 08/14/17 18:30 Dose: 999 mls/hr Iopamidol (Isovue Multipack-370 (76%)) 100 ml IVPUSH ONETIME STA Stop: 08/14/17 09:24 Last Admin: 08/14/17 09:24 Dose: 100 ml Ketorolac Tromethamine (Toradol) Confirm Administered Dose 30 mg .ROUTE .STK- MED ONE Stop: 08/14/17 12:04 Lidocaine (Xylocaine-Mpf 2%) Confirm Administered Dose 5 ml .ROUTE .STK-MED ONE Stop: 08/14/17 12:04 Metoclopramide HCl (Reglan) 10 mg IV ONETIME ONE Stop: 08/13/17 06:30 Last Admin: 08/13/17 06:33 Dose: 10 mg Midazolam HCl (Versed 1 Mg/Ml) Confirm Administered Dose 2 mg .ROUTE .STK-MED ONE Stop: 08/14/17 12:02 Morphine Sulfate (Morphine) 2 mg IVPUSH Q4H PRN PRN Reason: Pain Last Admin: 08/13/17 16:52 Dose: 2 mg Morphine Sulfate (Morphine) 2 mg IVPUSH Q2H PRN PRN Reason: Pain Last Admin: 08/14/17 07:31 Dose: 2 mg Morphine Sulfate (Morphine) 3 mg IV Q4H PRN PRN Reason: Breakthrough Pain Neostigmine Methylsulfate (Neostigmine) Confirm Administered Dose 5 mg .ROUTE .STK-MED ONE Stop: 08/14/17 12:04 Octyl Cyanoacrylate (Dermabond Advance) Confirm Administered Dose 1 applic .ROUTE .STK-MED ONE Stop: 08/14/17 11:56 Ondansetron HCl (Zofran) Confirm Administered Dose 4 mg .ROUTE .STK-MED ONE Stop: 08/14/17 12:04 Oxycodone/Acetaminophen (Percocet 325-5 Mg) 1 tab PO Q4H PRN PRN Reason: Pain Last Admin: 08/15/17 13:10 Dose: 1 tab Phenylephrine HCl (Phenylephrine In Ns 100 Mcg/Ml) Confirm Administered Dose 1 mg .ROUTE .STK-MED ONE Stop: 08/14/17 14:06 Phenylephrine HCl (Phenylephrine In Ns 100 Mcg/Ml) 0.1 mg IVPUSH ONETIME ONE Stop: 08/14/17 18:15 Last Admin: 08/14/17 18:32 Dose: 0.1 mg Phenylephrine HCl (Phenylephrine In Ns 100 Mcg/Ml) 0.2 mg IVPUSH ONETIME ONE Stop: 08/14/17 18:50 Last Admin: 08/14/17 18:55 Dose: 0.2 mg Potassium Chloride (Potassium Chloride) 40 meq PO ONETIME ONE Stop: 08/15/17 07:46 Last Admin: 08/15/17 09:01 Dose: 40 meq Potassium Chloride (Potassium Chloride) 40 meq PO ONETIME ONE Stop: 08/17/17 08:55 Last Admin: 08/17/17 09:54 Dose: 40 meq Propofol (Diprivan 20 Ml) Confirm Administered Dose 200 mg .ROUTE .STK-MED ONE Stop: 08/14/17 12:02 Rocuronium [place] (Zemuron) Confirm Administered Dose 100 mg .ROUTE .STK-MED ONE Stop: 08/14/17 12:04 - Exam GI/Abdominal Exam: Soft, Non-Tender, No Distention (wound cdi, sta, no expressible materials) - Problem List Review Problem List Initiated/Reviewed/Updated: Yes - My Orders Last 24 Hours: Active Orders 24 hr Category Date Time Status Ready for Discharge [RC] PER UNIT ROUTINE Care 08/17/17 09:42 Active Regular Diet [DIET] Diet 08/16/17 Lunch Active Cetirizine [ZyrTEC] Med 08/16/17 10:45 Active 10 mg PO DAILY Diazepam [Valium] Med 08/16/17 18:04 Active 2 mg PO Q12H PRN Medication Orders Acetaminophen (Tylenol) 650 mg PO Q4H PRN PRN Reason: Pain/Fever Last Admin: 08/16/17 13:14 Dose: 650 mg Admin: 08/15/17 11:52 Dose: 650 mg Admin: 08/15/17 00:43 Dose: 650 mg Admin: 08/14/17 12:52 Dose: 650 mg Cetirizine HCl (Zyrtec) 10 mg PO DAILY [facility] Last Admin: 08/17/17 08:01 Dose: 10 mg Admin: 08/16/17 11:00 Dose: 10 mg Diazepam (Valium) 2 mg PO Q12H PRN PRN Reason: Anxiety Fentanyl (Sublimaze) 50 mcg IVPUSH Q1H PRN PRN Reason: Pain (severe 7-10) Last Admin: 08/14/17 21:17 Dose: 50 mcg Ciprofloxacin/Dextrose 400 mg/ (Premix) 200 mls @ 200 mls/hr IV Q8H [facility] Last Admin: 08/17/17 05:35 Dose: 200 mls/hr Infusion: 08/16/17 23:41 Dose: 200 mls/hr Admin: 08/16/17 22:41 Dose: 200 mls/hr Infusion: 08/16/17 14:16 Dose: 200 mls/hr Admin: 08/16/17 13:16 Dose: 200 mls/hr Infusion: 08/16/17 06:30 Dose: 200 mls/hr Admin: 08/16/17 05:28 Dose: 200 mls/hr Infusion: 08/15/17 23:10 Dose: 200 mls/hr Admin: 08/15/17 22:10 Dose: 200 mls/hr Infusion: 08/15/17 15:10 Dose: 200 mls/hr Admin: 08/15/17 14:10 Dose: 200 mls/hr Infusion: 08/15/17 06:05 Dose: 200 mls/hr Admin: 08/15/17 05:05 Dose: 200 mls/hr Infusion: 08/14/17 23:13 Dose: 200 mls/hr Admin: 08/14/17 22:13 Dose: 200 mls/hr Admin: 08/14/17 14:05 Dose: Not Given Infusion: 08/14/17 06:06 Dose: 200 mls/hr Admin: 08/14/17 05:06 Dose: 200 mls/hr Infusion: 08/13/17 23:32 Dose: 200 mls/hr Admin: 08/13/17 22:32 Dose: 200 mls/hr Sodium Chloride (Normal Saline) 1,000 mls @ 125 mls/hr IV ASDIRECTED [facility] Last Admin: 08/17/17 01:07 Dose: 125 mls/hr Infusion: 08/16/17 21:15 Dose: 125 mls/hr Admin: 08/16/17 13:15 Dose: 125 mls/hr Infusion: 08/16/17 10:07 Dose: 125 mls/hr Admin: 08/16/17 02:07 Dose: 125 mls/hr Infusion: 08/16/17 02:02 Dose: 150 mls/hr Admin: 08/15/17 17:13 Dose: 150 mls/hr Infusion: 08/15/17 03:27 Dose: 150 mls/hr Admin: 08/14/17 20:46 Dose: 150 mls/hr Metronidazole 500 mg/ Premix 100 mls @ 100 mls/hr IV Q6H [facility] Last Admin: 08/17/17 08:01 Dose: 100 mls/hr Infusion: 08/17/17 04:42 Dose: 100 mls/hr Admin: 08/17/17 03:42 Dose: 100 mls/hr Infusion: 08/16/17 22:32 Dose: 100 mls/hr Admin: 08/16/17 21:32 Dose: 100 mls/hr Infusion: 08/16/17 15:58 Dose: 100 mls/hr Admin: 08/16/17 14:58 Dose: 100 mls/hr Infusion: 08/16/17 10:04 Dose: 100 mls/hr Admin: 08/16/17 09:04 Dose: 100 mls/hr Infusion: 08/16/17 03:15 Dose: 100 mls/hr Admin: 08/16/17 02:12 Dose: 100 mls/hr Infusion: 08/15/17 22:00 Dose: 100 mls/hr Admin: 08/15/17 20:58 Dose: 100 mls/hr Infusion: 08/15/17 16:40 Dose: 100 mls/hr Admin: 08/15/17 15:40 Dose: 100 mls/hr Infusion: 08/15/17 10:01 Dose: 100 mls/hr Admin: 08/15/17 09:01 Dose: 100 mls/hr Infusion: 08/15/17 03:04 Dose: 100 mls/hr Admin: 08/15/17 02:04 Dose: 100 mls/hr Infusion: 08/14/17 21:51 Dose: 100 mls/hr Admin: 08/14/17 20:51 Dose: 100 mls/hr Lorazepam (Ativan) 2 mg IVPUSH BEDTIME PRN PRN Reason: Anxiety Last Admin: 08/14/17 00:20 Dose: 2 mg Ondansetron HCl (Zofran) 4 mg IVPUSH Q4H PRN PRN Reason: Nausea/Vomiting Last Admin: 08/13/17 09:03 Dose: 4 mg Ondansetron HCl (Zofran) 4 mg IVPUSH Q8H PRN PRN Reason: Nausea/Vomiting Oxycodone/Acetaminophen (Percocet 325-5 Mg) 2 tab PO Q4H PRN PRN Reason: Pain Last Admin: 08/17/17 05:34 Dose: 2 tab Admin: 08/16/17 23:49 Dose: 2 tab Admin: 08/16/17 19:41 Dose: 2 tab Admin: 08/16/17 15:07 Dose: 1 tab Admin: 08/16/17 04:31 Dose: 2 tab Admin: 08/15/17 18:12 Dose: 2 tab Oxymetazoline HCl (Afrin Original 0.05% Nasal [place]) 0 ml JUSTO TID PRN PRN Reason: Other Last Admin: 08/15/17 20:57 Dose: 1 spr Prazosin HCl (Minpress) 1 mg PO BEDTIME [facility] Last Admin: 08/16/17 21:31 Dose: 1 mg Admin: 08/15/17 21:47 Dose: 1 mg Admin: 08/14/17 20:29 Dose: Admin: 08/13/17 22:31 Dose: 1 mg Sertraline HCl (Zoloft) 50 mg PO DAILY [facility]ANETT Last Admin: 08/17/17 08:02 Dose: 50 mg Admin: 08/16/17 09:05 Dose: 50 mg Admin: 08/15/17 09:01 Dose: 50 mg Admin: 08/14/17 08:45 Dose: 50 mg - Assessment Assessment (Free Text/Narrative):: pod#3 from lap appy w perforated appendicitis; doing well, kyree po, avss, wound cdi, abd exam benign; would dc home w levaquine/flagyl, pt goes home with anabelle drain, and record output daily; no heavy wt lifting > 10 lb; ok to shower, regular diet; fu 1 wk; thanks for the consult and care of this nice lady; recall if questions - Plan Plan (Free Text/Narrative):: pod#3 from lap appy w perforated appendicitis; doing well, kyree po, avss, wound cdi, abd exam benign; would dc home w levaquine/flagyl, pt goes home with anabelle drain, and record output daily; no heavy wt lifting > 10 lb; ok to shower, regular diet; fu 1 wk; thanks for the consult and care of this nice lady; recall if questions
== END 2017-08-17 13:15 | disposition home or self-care (01) | DRG 339 ==
LOC: MW.ED 05:05 → MW.MS 06:29 → UNDOADMOB 06:29 → MW.MS 10:32 → UNDOADMOB 10:32 → OBSVTOIN 10:32 → INTOOBSV 10:32 → MW.ICU 08-14 19:28 → MW.MS 08-15 11:17
PROVIDERS: ADMIT Family Medicine; ATTEND Family Medicine
PROC: 0DTJ4ZZ Resection of Appendix, Percutaneous Endoscopic Approach (ICD-10-PCS; principal; 2017-08-14)
DX: K35.3 Acute appendicitis with localized peritonitis (principal); K31.1 Adult hypertrophic pyloric stenosis; R09.81 Nasal congestion; R51 Headache; I10 Essential (primary) hypertension; F41.8 Other specified anxiety disorders; F43.10 Post-traumatic stress disorder, unspecified; F17.200 Nicotine dependence, unspecified, uncomplicated; Z88.0 Allergy status to penicillin; Z79.899 Other long term (current) drug therapy; E66.9 Obesity, unspecified; Z68.32 Body mass index [BMI] 32.0-32.9, adult
CPT/HCPCS: 00840; 36415; 36430; 74020; 74020-26; 74177; 74177-26; 80053; 81001; 81025; 82150; 82962; 83605; 83690; 83735; 84100; 85025; 85610; 85730; 86850; 86900; 86901; 87040; 87070; 87075; 87086; 87088; 87186; 87205; 88304; 96361; 96374; 99283; 99285-25; A9270-GY; C1776; J0744; J1170; J1200; J1650; J1885; J1956; J2060; J2250; J2270; J2405; J2704; J2765; J3010; J3480; J7040; J7120; P9017; Q9967

== ENCOUNTER 2017-08-26 11:59 | Emergency (ER) | payer MEDICAID ==
[2017-08-26] MEDS ORDERED: Sodium Chloride 0.9% 1,000 ML IV ONE (12:27)
[2017-08-26] MEDS ORDERED: Morphine 10 MG/ML Syringe IV ONE (12:27)
--- NOTE | 2017-08-26 12:28 | EDM.PDOC ---
ED HPI GENERAL MEDICAL PROBLEM - General Chief Complaint: Abdominal Pain Stated Complaint: LOWER ABD PAIN Time Seen by Provider: 08/26/17 12:27 Source of Information: Reports: Patient - History of Present Illness INITIAL COMMENTS - FREE TEXT/NARRATIVE: HISTORY AND PHYSICAL: History of present illness: []Patient is postop day [address] Whitmore, she presents with bilateral out of 10 abdominal pain she has been out of her pain medication for a couple of days now. She is in no distress no fever nausea vomiting chills sweats no chest pain shortness breath headache dizziness palpitation about a urine symptoms Review of systems: As per history of present illness and below otherwise all systems reviewed and negative. Past medical history: As per history of present illness and as reviewed below otherwise noncontributory. Surgical history: As per history of present illness and as reviewed below otherwise noncontributory. Social history: No reported history of drug or alcohol abuse. Family history: As per history of present illness and as reviewed below otherwise noncontributory. Physical exam: HEENT: Atraumatic, normocephalic, pupils reactive, negative for conjunctival pallor or scleral icterus, mucous membranes moist, throat clear, neck supple, nontender, trachea midline. Lungs: Clear to auscultation, breath sounds equal bilaterally, chest nontender. Heart: S1S2, regular, negative for clicks, rubs, or JVD. Abdomen: Soft, nondistended, diffusely tender with deep palpation no guarding no rebound, she has 3 surgical incisions on her abdomen or sure clean dry intact no exudate yazan present. Negative for masses or hepatosplenomegaly. Negative for costovertebral tenderness. Pelvis: Stable nontender. Genitourinary: Deferred. Rectal: Deferred. Extremities: Atraumatic, negative for cords or calf pain. Neurovascular unremarkable. Neuro: Awake, alert, oriented. Cranial nerves II through XII unremarkable. Cerebellum unremarkable. Motor and sensory unremarkable throughout. Exam nonfocal. Diagnostics: []CBC CMP UA Abdomen flat and upright Therapeutics: [][place] 5 per 325 #30 Impression: []Postop day 10 appendectomy Abdominal pain Postoperative pain No acute findings Definitive disposition and diagnosis as appropriate pending reevaluation and review of above. right upper lower abdomen Pain Score (Numeric/FACES): 9 - Related Data Allergies Allergy/AdvReac Type Severity Reaction Status Date / Time Penicillins Allergy Hives Verified 08/26/17 12:14 Bee Stings Allergy Edema Uncoded 08/26/17 12:14 Home Meds: Home Meds Naproxen 220 mg PO ASDIRECTED PRN 08/13/17 [History] Prazosin [Minpress] 1 mg PO BEDTIME 08/13/17 [History] Sertraline HCl [Zoloft] 1 tab PO DAILY 08/13/17 [History] Solifenacin Succinate [Vesicare] 10 mg PO DAILY 08/13/17 [History] Docusate Sodium [Colace] 100 mg PO DAILY 5 Days #5 cap 08/17/17 [Rx] Past Medical History HEENT History: Reports: None Cardiovascular History: Reports: Hypertension Respiratory History: Reports: None Gastrointestinal History: Reports: None Genitourinary History: Reports: None Musculoskeletal History: Reports: Other (See Below) Other Musculoskeletal History: Tendonitis Neurological History: Reports: Headaches, Chronic, Seizure Psychiatric History: Reports: Addiction, Anxiety, Depression, PTSD, Schizophrenia, Other (See Below) Endocrine/Metabolic History: Reports: None Hematologic History: Reports: None Immunologic History: Reports: None Oncologic (Cancer) History: Reports: None Dermatologic History: Reports: None - Infectious Disease History Infectious Disease History: Reports: None - Past Surgical History Head Surgeries/Procedures: Reports: None HEENT Surgical History: Reports: Other (See Below) Other HEENT Surgeries/Procedures: facial plastic surgery GI Surgical History: Reports: Appendectomy Female Surgical History: Reports: Section Dermatological Surgical History: Reports: Other (See Below) Social & Family History - Family History Family Medical History: Noncontributory Cardiac: Reports: Other (See Below) Other Cardiac Family History: Heart Disease from father Oncologic: Reports: Breast, Ovarian - Tobacco Use Smoking Status *Q: Current Every Day Smoker Years of Tobacco use: 20 Packs/Tins Daily: 0.1 Used Tobacco, but Quit: No Second Hand Smoke Exposure: Yes - Caffeine Use Caffeine Use: Reports: None - Recreational Drug Use Recreational Drug Use: No ED ROS GENERAL - Review of Systems Review Of Systems: ROS reveals no pertinent complaints other than HPI. ED EXAM, GENERAL - Physical Exam Exam: See Below Course - Vital Signs Last Recorded V/S: Last Vital Signs Temp 97.3 F 08/26/17 12:14 Pulse 86 08/26/17 12:14 Resp 16 08/26/17 12:14 BP 135/61 08/26/17 12:14 Pulse Ox 96 08/26/17 12:14 - Orders/Labs/Meds Orders: Active Orders 24 hr Category Date Time Status Abdomen 2V AP Flat Upright [CR] Stat Exams 08/26/17 13:24 Taken Labs: Laboratory Tests 08/26/17 08/26/17 08/26/17 Range/Units 12:40 12:40 13:11 WBC 10.51 (4.0-11.0) K/uL RBC 3.93 L (4.30-5.90) M/uL Hgb 11.7 L (12.0-16.0) g/dL Hct 36.5 (36.0-46.0) % MCV 92.9 (80.0-98.0) fL MCH 29.8 (27.0-32.0) pg MCHC 32.1 (31.0-37.0) g/dL RDW Std Deviation 54.9 (28.0-62.0) fl RDW Coeff of [place] 16 H (11.0-15.0) % Plt Count 655 H (150-400) K/uL MPV 9.20 (7.40-12.00) fL Neut % (Auto) 74.4 (48.0-80.0) % Lymph % (Auto) 15.5 L (16.0-40.0) % [place] % (Auto) 6.6 (0.0-15.0) % Eos % (Auto) 3.1 (0.0-7.0) % Baso % (Auto) 0.4 (0.0-1.5) % Neut # (Auto) 7.8 H (1.4-5.7) K/uL Lymph # (Auto) 1.6 (0.6-2.4) K/uL [place] # (Auto) 0.7 (0.0-0.8) K/uL Eos # (Auto) 0.3 (0.0-0.7) K/uL Baso # (Auto) 0.0 (0.0-0.1) K/uL Nucleated RBC % 0.0 /100WBC Nucleated RBCs # 0 K/uL Sodium 140 (136-146) mmol/L Potassium 3.9 (3.5-5.1) mmol/L Chloride 108 (98-110) mmol/L Carbon Dioxide 22 (21-31) mmol/L BUN 18 (6.0-23.0) mg/dL Creatinine 0.6 (0.6-1.5) mg/dL Est Cr Clr Drug Dosing 104.40 mL/min Estimated GFR (MDRD) > 60.0 ml/min Glucose 127 H (60-110) mg/dL Calcium 8.9 (8.8-10.8) mg/dL Total Bilirubin 0.2 (0.1-1.5) mg/dL AST 27 (5-40) IU/L ALT 32 (8-54) IU/L Alkaline Phosphatase 65 (40-150) Total Protein 7.0 (6.0-8.0) g/dL Albumin 3.6 (3.5-5.0) g/dL Globulin 3.4 (2.0-3.5) g/dL Albumin/Globulin Ratio 1.1 L (1.3-2.8) Urine Color YELLOW Urine Appearance CLEAR Urine pH 6.5 (5.0-8.0) Ur Specific [place] 1.015 (1.001-1.035) Urine Protein NEGATIVE (NEGATIVE) mg/dL Urine Glucose (UA) NEGATIVE (NEGATIVE) mg/dL Urine Ketones NEGATIVE (NEGATIVE) mg/dL Urine Occult Blood NEGATIVE (NEGATIVE) Urine Nitrite NEGATIVE (NEGATIVE) Urine Bilirubin NEGATIVE (NEGATIVE) Urine Urobilinogen 0.2 (<2.0) EU/dL Ur Leukocyte Esterase NEGATIVE (NEGATIVE) Urine RBC 0-1 (0-2/HPF) Urine WBC 0-1 (0-5/HPF) Ur Epithelial Cells MODERATE (NONE-FEW) Urine Bacteria FEW (NEGATIVE) Meds: Medications Discontinued Medications Generic Name Dose Route Start Last Admin Trade Name Freq PRN Reason Stop Dose Admin Diphenhydramine HCl 25 mg 08/26/17 12:49 08/26/17 12:54 Benadryl IVPUSH 08/26/17 12:50 25 mg ONETIME ONE Administration Sodium Chloride 1,000 mls @ 999 mls/hr 08/26/17 12:27 08/26/17 12:42 Normal Saline IV 08/26/17 13:27 999 mls/hr STAT ONE Administration Morphine Sulfate 2 mg 08/26/17 12:27 08/26/17 12:44 Morphine IV 08/26/17 12:28 2 mg ONETIME ONE Administration Departure - Departure Time of Disposition: 14:44 Disposition: Home, Self-Care 01 Condition: Good Clinical Impression: Abdominal pain Qualifiers: Abdominal location: generalized Qualified Code(s): R10.84 - Generalized abdominal pain - Discharge Information Referrals: Gabriel Gray MD [Primary Care Provider] - Forms: ED Department Discharge Additional Instructions: Medication as prescribed Return if symptoms persist or worsen or new concerning symptoms develop such as fever nausea vomiting chills sweats With Dr. Whitmore your general surgeon as scheduled sooner as needed [facility] - General Surgery Professional [address], [address] [place] [address] The following information is given to patients seen in the emergency department who are being discharged to home. This information is to outline your options for follow-up care. We provide all patients seen in our emergency department with a follow-up referral. The need for follow-up, as well as the timing and circumstances, are variable depending upon the specifics of your emergency department visit. If you don't have a primary care physician on staff, we will provide you with a referral. We always advise you to contact your personal physician following an emergency department visit to inform them of the circumstance of the visit and for follow-up with them and/or the need for any referrals to a consulting specialist. The emergency department will also refer you to a specialist when appropriate. This referral assures that you have the opportunity for follow-up care with a specialist. All of these measure are taken in an effort to provide you with optimal care, which includes your follow-up. Under all circumstances we always encourage you to contact your private physician who remains a resource for coordinating your care. When calling for follow-up care, please make the office aware that this follow-up is from your recent emergency room visit. If for any reason you are refused follow-up, please contact the [facility] emergency department at and asked to speak to the emergency department charge nurse. - My Orders Last 24 Hours: My Active Orders 08/26/17 13:24 Abdomen 2V AP Flat Upright [CR] Stat - Assessment/Plan Last 24 Hours: My Active Orders 08/26/17 13:24 Abdomen 2V AP Flat Upright [CR] Stat
[2017-08-26] MEDS ORDERED: diphenhydrAMINE 50 MG/ML SDV IVPUSH ONE (12:49)
[2017-08-26 13:16] LABS: CHLORIDE,CL 108 mmol/L (98-110); SODIUM,NA 140 mmol/L (136-146)
--- NOTE | 2017-08-26 16:03 | CR ---
EXAM DATE: 08/26/17 PATIENT'S AGE: 41 Patient: DONIS LOREDO Facility: [place], [place] Site . Site : [id number] Study: XRay Abdomen [id number]/15/2017 1:58:20 PM Ordering Physician: Doctor Méndez Final Report: Indication: Abdomen pain. Recent appendectomy. Technique: Abdomen 3 view. Comparison: CT abdomen pelvis August 14, 2017. Findings: BOWEL: Bowel pattern is normal. The amount of colonic stool is within normal limits. OTHER: No sign of free air. No sign of soft tissue mass. No suspicious calcifications. Osseous structures are unremarkable for age. Impression: Unremarkable abdomen. Dictated by Danny Gabriel MD @ Aug 26 2017 2:32PM (Electronic Signature) Report Signed by Proxy. [facility]ITALWilfred
== END 2017-08-26 15:03 | disposition home or self-care (01) ==
LOC: MW.ED 11:59
DX: G89.18 Other acute postprocedural pain (principal); R10.84 Generalized abdominal pain; I10 Essential (primary) hypertension; F32.9 Major depressive disorder, single episode, unspecified; F17.210 Nicotine dependence, cigarettes, uncomplicated; Z90.49 Acquired absence of other specified parts of digestive tract; Z79.899 Other long term (current) drug therapy; Z88.0 Allergy status to penicillin; Z91.030 Bee allergy status
CPT/HCPCS: 36415; 74020; 80053; 81001; 85025; 96361; 96374; 96375; 99284; J1200; J2270; J7040

== ENCOUNTER 2019-09-04 11:46 | Emergency (ER) | payer SELFPAY ==
--- NOTE | 2019-09-04 13:42 | EDM.PDOC ---
ED HPI GENERAL MEDICAL PROBLEM - General Chief Complaint: General Stated Complaint: CRACKED TOOTH Time Seen by Provider: 09/04/19 14:17 Source of Information: Reports: Patient History Limitations: Reports: No Limitations - History of Present Illness Onset: Today Location: Reports: Face Quality: Reports: Ache Severity: Moderate Improves with: Reports: None Worsens with: Reports: Eating Associated Symptoms: Reports: No Other Symptoms Right Oral/Mouth Pain Score (Numeric/FACES): 9 - Related Data Allergies Allergy/AdvReac Type Severity Reaction Status Date / Time Penicillins Allergy Hives Verified 08/26/17 12:14 Bee Stings Allergy Edema Uncoded 08/26/17 12:14 Home Meds: Home Meds Sertraline HCl [Zoloft] 1 tab PO DAILY 08/13/17 [History] Solifenacin Succinate [Vesicare] 10 mg PO DAILY 08/13/17 [History] Past Medical History HEENT History: Reports: None Cardiovascular History: Reports: Hypertension Respiratory History: Reports: None Gastrointestinal History: Reports: None Genitourinary History: Reports: None Musculoskeletal History: Reports: Other (See Below) Other Musculoskeletal History: Tendonitis Neurological History: Reports: Headaches, Chronic, Seizure Psychiatric History: Reports: Addiction, Anxiety, Depression, PTSD, Schizophrenia, Other (See Below) Endocrine/Metabolic History: Reports: None Hematologic History: Reports: None Immunologic History: Reports: None Oncologic (Cancer) History: Reports: None Dermatologic History: Reports: None - Infectious Disease History Infectious Disease History: Reports: None - Past Surgical History Head Surgeries/Procedures: Reports: None HEENT Surgical History: Reports: Other (See Below) Other HEENT Surgeries/Procedures: facial plastic surgery GI Surgical History: Reports: Appendectomy Female Surgical History: Reports: Section Dermatological Surgical History: Reports: Other (See Below) Social & Family History - Family History Family Medical History: Noncontributory Cardiac: Reports: Other (See Below) Other Cardiac Family History: Heart Disease from father Oncologic: Reports: Breast, Ovarian - Tobacco Use Smoking Status *Q: Current Some Day Smoker Years of Tobacco use: 5 Packs/Tins Daily: 0.1 - Caffeine Use Caffeine Use: Reports: None - Recreational Drug Use Recreational Drug Use: No ED ROS GENERAL - Review of Systems Review Of Systems: See Below Constitutional: Reports: No Symptoms HEENT: Reports: Dental Pain Respiratory: Reports: No Symptoms Cardiovascular: Reports: No Symptoms Endocrine: Reports: No Symptoms GI/Abdominal: Reports: No Symptoms : Reports: No Symptoms ED EXAM, GENERAL - Physical Exam Exam: See Below Free Text/Narrative:: Exam: See Below Exam Limited By: No Limitations Head: Atraumatic, positive for tooth #28 dental pain. Neck: Normal Inspection. No: Carotid Bruit, Lymphadenopathy (R) Respiratory/Chest: No Respiratory Distress, Lungs Clear, Normal Breath Sounds, No Accessory Muscle Use. No: Chest Non-Tender Cardiovascular: Normal Peripheral Pulses, Regular Rate, Rhythm, No Edema, No JVD GI/Abdominal: Normal Bowel Sounds, Tender. No: Non-Tender, Splenomegaly Back Exam: Normal Inspection. No: CVA Tenderness (R) Extremities: Normal Inspection. No: No Pedal Edema Neurological: Alert, Oriented, Normal Cognition Psychiatric: Normal Affect Skin Exam: Warm Lymphatic: No Adenopathy Course - Vital Signs Last Recorded V/S: Last Vital Signs Temp 37.1 C 09/04/19 12:26 Pulse 81 09/04/19 12:26 Resp 20 09/04/19 12:26 BP 147/84 H 09/04/19 12:26 Pulse Ox 96 09/04/19 12:26 Departure - Departure Time of Disposition: 14:15 Disposition: Home, Self-Care 01 Condition: Good Clinical Impression: Pain due to dental caries - Discharge Information Referrals: PCP,None [Primary Care Provider] - Additional Instructions: Patient has been started on clindamycin 300 mg 4 times daily 10-day course. She is advised to continue with ibuprofen or Naprosyn and she will follow-up with her next as soon as possible. She will return to emergency department if worse. Sepsis Event Note - Evaluation Sepsis Screening Result: No Definite Risk - Focused Exam Vital Signs: Vital Signs Temp Pulse Resp BP Pulse Ox 09/04/19 12:26 37.1 C 81 20 147/84 H 96 Date Exam was Performed: 09/04/19 Time Exam was Performed: 13:30
== END 2019-09-04 14:28 | disposition home or self-care (01) ==
LOC: MW.ED 11:46
DX: K02.9 Dental caries, unspecified (principal); I10 Essential (primary) hypertension; F32.9 Major depressive disorder, single episode, unspecified; F41.9 Anxiety disorder, unspecified; F43.10 Post-traumatic stress disorder, unspecified; F17.210 Nicotine dependence, cigarettes, uncomplicated; Z79.899 Other long term (current) drug therapy; Z88.0 Allergy status to penicillin; Z91.030 Bee allergy status
CPT/HCPCS: 99282

== ENCOUNTER 2019-09-05 16:23 | Emergency (ER) | payer SELFPAY ==
[2019-09-05] MEDS ORDERED: Sodium Chloride 0.9% 10 ML Syringe FLUSH PRN (16:48)
[2019-09-05] MEDS ORDERED: Sodium Chloride 0.9% 2.5 ML Syringe FLUSH PRN (16:48)
[2019-09-05] MEDS ORDERED: Clindamycin Phosphate in D5W 900 MG in Premix Bag 1 BAG IV ONE ×2 (17:18)
[2019-09-05] MEDS ORDERED: Acetaminophen/oxyCODONE 325-5 MG Tab PO ONE (17:57)
--- NOTE | 2019-09-05 18:06 | EDM.PDOC ---
ED HPI GENERAL MEDICAL PROBLEM - General Chief Complaint: ENT Problem Stated Complaint: CHIPPED TOOTH/SWELLING Time Seen by Provider: 09/05/19 16:45 Source of Information: Reports: Patient History Limitations: Reports: No Limitations - History of Present Illness INITIAL COMMENTS - FREE TEXT/NARRATIVE: Patient is a 43-year-old female who was seen by me yesterday for which she felt was a chipped tooth and what I thought was a dental infection. She was started on clindamycin yesterday but has noted increased swelling to her right lower jaw today with increased pain. Has no swelling to her oropharynx and has had no trouble swallowing. Is any fever or chills but states the pain has gotten much worse. She denies any nausea or vomiting. Will be able follow-up with her dentist most likely this week. 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, dental Pain Score (Numeric/FACES): 8 - Related Data Allergies Allergy/AdvReac Type Severity Reaction Status Date / Time Penicillins Allergy Hives Verified 09/05/19 16:36 Bee Stings Allergy Edema Uncoded 09/05/19 16:36 Home Meds: Home Meds Sertraline HCl [Zoloft] 1 tab PO DAILY 08/13/17 [History] Solifenacin Succinate [Vesicare] 10 mg PO DAILY 08/13/17 [History] Acetaminophen/Diphenhydramine [Tylenol Pm Ex-Strength Caplet] 1 tab PO Q6H PRN 09/05/19 [History] Clindamycin HCl 2 tab PO QID 09/05/19 [History] Past Medical History HEENT History: Reports: None Cardiovascular History: Reports: Hypertension Respiratory History: Reports: None Gastrointestinal History: Reports: None Genitourinary History: Reports: None Musculoskeletal History: Reports: Other (See Below) Other Musculoskeletal History: Tendonitis Neurological History: Reports: Headaches, Chronic, Seizure Psychiatric History: Reports: Addiction, Anxiety, Depression, PTSD, Schizophrenia, Other (See Below) Endocrine/Metabolic History: Reports: None Hematologic History: Reports: None Immunologic History: Reports: None Oncologic (Cancer) History: Reports: None Dermatologic History: Reports: None - Infectious Disease History Infectious Disease History: Reports: None - Past Surgical History Head Surgeries/Procedures: Reports: None HEENT Surgical History: Reports: Other (See Below) Other HEENT Surgeries/Procedures: facial plastic surgery GI Surgical History: Reports: Appendectomy Female Surgical History: Reports: Section Dermatological Surgical History: Reports: Other (See Below) Social & Family History - Family History Family Medical History: Noncontributory Cardiac: Reports: Other (See Below) Other Cardiac Family History: Heart Disease from father Oncologic: Reports: Breast, Ovarian - Tobacco Use Smoking Status *Q: Current Every Day Smoker Years of Tobacco use: 10 Packs/Tins Daily: 0 - Caffeine Use Caffeine Use: Reports: None - Recreational Drug Use Recreational Drug Use: No ED ROS ENT - Review of Systems Review Of Systems: See Below Constitutional: Reports: No Symptoms HEENT: Reports: Dental Pain, Other (Facial cellulitis on right mandible consistent with a apical abscess.). Denies: Throat Swelling Respiratory: Reports: No Symptoms Cardiovascular: Reports: No Symptoms Endocrine: Reports: No Symptoms GI/Abdominal: Reports: No Symptoms Musculoskeletal: Reports: No Symptoms Skin: Reports: No Symptoms Neurological: Reports: No Symptoms Psychiatric: Reports: No Symptoms ED EXAM, ENT - Physical Exam Exam: See Below Exam Limited By: No Limitations General Appearance: Alert, Mild Distress Mouth/Throat: Dental Abcess, Dental Tenderness Head: Facial Swelling, Facial Tenderness Neck: Normal Inspection Respiratory/Chest: No Respiratory Distress Cardiovascular: No JVD GI/Abdominal: Normal Bowel Sounds, Soft, Non-Tender Back: Normal Inspection Extremities: Normal Inspection Neurological: Alert, Oriented Psychiatric: Normal Affect Skin: Warm, Dry Course - Vital Signs Last Recorded V/S: Last Vital Signs Temp 36.5 C 09/05/19 16:33 Pulse 103 H 09/05/19 16:33 Resp 20 09/05/19 16:33 BP 131/94 H 09/05/19 16:33 Pulse Ox 95 09/05/19 16:33 - Orders/Labs/Meds Orders: Active Orders 24 hr Category Date Time Status Sodium Chloride 0.9% [Saline Flush] Med 09/05/19 16:48 Active 10 ml FLUSH ASDIRECTED PRN Sodium Chloride 0.9% [Saline Flush] Med 09/05/19 16:48 Active 2.5 ml FLUSH ASDIRECTED PRN Saline Lock Insert [OM.PC] Stat Oth 09/05/19 16:48 Ordered Medication Orders Sodium Chloride (Saline Flush) 10 ml FLUSH ASDIRECTED PRN PRN Reason: Keep Vein Open Last Admin: 09/05/19 17:22 Dose: 10 ml Sodium Chloride (Saline Flush) 2.5 ml FLUSH ASDIRECTED PRN PRN Reason: Keep Vein Open Last Admin: 09/05/19 17:22 Dose: 2.5 ml Meds: Medications Generic Name Dose Route Start Last Admin Trade Name Freq PRN Reason Stop Dose Admin Sodium Chloride 10 ml 09/05/19 16:48 09/05/19 17:22 Saline Flush FLUSH 10 ml ASDIRECTED PRN Administration Keep Vein Open Sodium Chloride 2.5 ml 09/05/19 16:48 09/05/19 17:22 Saline Flush FLUSH 2.5 ml ASDIRECTED PRN Administration Keep Vein Open Discontinued Medications Generic Name Dose Route Start Last Admin Trade Name Freq PRN Reason Stop Dose Admin Clindamycin Phosphate 900 mg/ 56 mls @ 100 mls/hr 09/05/19 16:48 09/05/19 17: 21 Sodium Chloride IV 09/05/19 17:21 Not Given ONETIME ONE Clindamycin Phosphate 900 mg/ 50 mls @ 100 mls/hr 09/05/19 17:18 09/05/19 17: 22 Premix IV 09/05/19 17:47 100 mls/hr ONETIME ONE Administration Oxycodone/Acetaminophen 1 tab 09/05/19 17:57 Percocet 325-5 Mg PO 09/05/19 17:58 ONETIME ONE Departure - Departure Time of Disposition: 18:14 Disposition: Home, Self-Care 01 Condition: Good Clinical Impression: Dental abscess, Facial cellulitis - Discharge Information Instructions: Cellulitis, Adult, Dental Abscess, [id number] Referrals: PCP,None [Primary Care Provider] - Forms: ED Department Discharge Additional Instructions: The following information is given to patients seen in the emergency department who are being discharged to home. This information is to outline your options for follow-up care. We provide all patients seen in our emergency department with a follow-up referral. The need for follow-up, as well as the timing and circumstances, are variable depending upon the specifics of your emergency department visit. If you don't have a primary care physician on staff, we will provide you with a referral. We always advise you to contact your personal physician following an emergency department visit to inform them of the circumstance of the visit and for follow-up with them and/or the need for any referrals to a consulting specialist. The emergency department will also refer you to a specialist when appropriate. This referral assures that you have the opportunity for follow-up care with a specialist. All of these measure are taken in an effort to provide you with optimal care, which includes your follow-up. Under all circumstances we always encourage you to contact your private physician who remains a resource for coordinating your care. When calling for follow-up care, please make the office aware that this follow-up is from your recent emergency room visit. If for any reason you are refused follow-up, please contact the [facility] Emergency Department at and asked to speak to the emergency department charge nurse. Care Plan Goals: Percocets as needed #10. Continue with clindamycin 300 mg 4 times a day. Follow-up with dentist as soon as possible. To ER if worse or not improving. Sepsis Event Note - Evaluation Sepsis Screening Result: No Definite Risk - Focused Exam Vital Signs: Vital Signs Temp Pulse Resp BP Pulse Ox 09/05/19 16:33 36.5 C 103 H 20 131/94 H 95 Date Exam was Performed: 09/05/19 Time Exam was Performed: 18:06 - My Orders Last 24 Hours: My Active Orders 09/05/19 16:48 Sodium Chloride 0.9% [Saline Flush] 10 ml FLUSH ASDIRECTED PRN Sodium Chloride 0.9% [Saline Flush] 2.5 ml FLUSH ASDIRECTED PRN Saline Lock Insert [OM.PC] Stat - Assessment/Plan Last 24 Hours: My Active Orders 09/05/19 16:48 Sodium Chloride 0.9% [Saline Flush] 10 ml FLUSH ASDIRECTED PRN Sodium Chloride 0.9% [Saline Flush] 2.5 ml FLUSH ASDIRECTED PRN Saline Lock Insert [OM.PC] Stat
== END 2019-09-05 18:54 | disposition home or self-care (01) ==
LOC: MW.ED 16:23
DX: K04.7 Periapical abscess without sinus (principal); L03.211 Cellulitis of face; I10 Essential (primary) hypertension; F32.9 Major depressive disorder, single episode, unspecified; F43.10 Post-traumatic stress disorder, unspecified; F41.9 Anxiety disorder, unspecified; F17.210 Nicotine dependence, cigarettes, uncomplicated; Z79.899 Other long term (current) drug therapy; Z88.2 Allergy status to sulfonamides; Z91.030 Bee allergy status
CPT/HCPCS: 96365; 99283; A9270; J3490

== ENCOUNTER 2019-10-22 17:33 | Emergency (ER) | payer SELFPAY ==
--- NOTE | 2019-10-22 17:52 | EDM.PDOC ---
ED HPI GENERAL MEDICAL PROBLEM - General Chief Complaint: Respiratory Problem Stated Complaint: COUGHING Time Seen by Provider: 10/22/19 17:47 Source of Information: Reports: Patient, Family History Limitations: Reports: No Limitations - History of Present Illness INITIAL COMMENTS - FREE TEXT/NARRATIVE: Patient is a 43-year-old female who is had a nonproductive cough that is been going on for several weeks but is gotten worse last few days. Patient denies any vomiting or diarrhea. She is feeling somewhat short of breath. She is complaining of flulike symptoms feeling achy all over. She denies having a severe headache. Complaining of chest pain that is worse when she takes deep breath or with coughing. She is not a cigarette smoker and has no history of pneumonia. She is feeling feverish and having chills that time. Onset: Gradual Duration: Week(s): (3 to 4 weeks.), Getting Worse Quality: Reports: Ache, Dull Severity: Moderate Improves with: Reports: None Worsens with: Reports: Breathing Associated Symptoms: Reports: Chest Pain, Cough, Fever/Chills, Malaise. Denies : Nausea/Vomiting, Shortness of Breath body aches Pain Score (Numeric/FACES): 7 - Related Data Allergies Allergy/AdvReac Type Severity Reaction Status Date / Time Penicillins Allergy Hives Verified 09/05/19 16:36 Bee Stings Allergy Edema Uncoded 09/05/19 16:36 Home Meds: Home Meds . [No Known Home Meds] 10/22/19 [History] Past Medical History HEENT History: Reports: None Cardiovascular History: Reports: Hypertension Respiratory History: Reports: None Gastrointestinal History: Reports: None Genitourinary History: Reports: None Musculoskeletal History: Reports: Other (See Below) Other Musculoskeletal History: Tendonitis Neurological History: Reports: Headaches, Chronic, Seizure Psychiatric History: Reports: Addiction, Anxiety, Depression, PTSD, Schizophrenia, Other (See Below) Endocrine/Metabolic History: Reports: None Hematologic History: Reports: None Immunologic History: Reports: None Oncologic (Cancer) History: Reports: None Dermatologic History: Reports: None - Infectious Disease History Infectious Disease History: Reports: None - Past Surgical History Head Surgeries/Procedures: Reports: None HEENT Surgical History: Reports: Other (See Below) Other HEENT Surgeries/Procedures: facial plastic surgery GI Surgical History: Reports: Appendectomy Female Surgical History: Reports: Section Dermatological Surgical History: Reports: Other (See Below) Social & Family History - Family History Family Medical History: Noncontributory Cardiac: Reports: Other (See Below) Other Cardiac Family History: Heart Disease from father Oncologic: Reports: Breast, Ovarian - Tobacco Use Smoking Status *Q: Former Smoker Used Tobacco, but Quit: Yes Month/Year Tobacco Last Used: 09/2019 - Caffeine Use Caffeine Use: Reports: None - Recreational Drug Use Recreational Drug Use: No ED ROS GENERAL - Review of Systems Review Of Systems: Comprehensive ROS is negative, except as noted in HPI. ED EXAM, GENERAL - Physical Exam Exam: See Below Free Text/Narrative:: Exam: See Below Exam Limited By: No Limitations. Patient is clearly uncomfortable secondary to her flulike symptoms. Head: Atraumatic Neck: Normal Inspection. No: Carotid Bruit, Lymphadenopathy (R) Respiratory/Chest: No Respiratory Distress, Lungs Clear, Normal Breath Sounds, no wheezing appreciated. No Accessory Muscle Use. No: Chest Non-Tender Cardiovascular: Normal Peripheral Pulses, Regular Rate, Rhythm, No Edema, No JVD GI/Abdominal: Normal Bowel Sounds, tender no masses. Back Exam: Normal Inspection. No: CVA Tenderness (R) Extremities: Normal Inspection. No: No Pedal Edema Neurological: Alert, Oriented, Normal Cognition Psychiatric: Normal Affect Skin Exam: Warm Lymphatic: No Adenopathy Course - Vital Signs Text/Narrative:: Patient's influenza is negative. She is feeling better with albuterol treatment and meds. She feels well enough to be discharged home. I will keep her on prednisone and start her on antibiotic. I will also give her some Robitussin-AC. Patient's O2 saturation remained high with clear lung exam for this reason I did not get a chest x-ray. Last Recorded V/S: Last Vital Signs Temp 36.7 C 10/22/19 19:15 Pulse 89 10/22/19 19:15 Resp 18 10/22/19 19:15 BP 108/49 L 10/22/19 19:15 Pulse Ox 96 10/22/19 19:15 - Orders/Labs/Meds Orders: Active Orders 24 hr Category Date Time Status RT Aerosol Therapy [RC] ASDIRECTED Care 10/22/19 17:54 Active Meds: Medications Discontinued Medications Generic Name Dose Route Start Last Admin Trade Name Freq PRN Reason Stop Dose Admin Albuterol/Ipratropium 3 ml 10/22/19 17:53 10/22/19 18:03 Duoneb 3.0-0.5 Mg/3 Ml NEB 10/22/19 17:54 3 ml ONETIME ONE Administration Guaifenesin/Codeine Phosphate 10 ml 10/22/19 18:30 10/22/19 18:38 Robitussin Ac PO 10/22/19 18:31 10 ml ONETIME ONE Administration Sodium Chloride 1,000 mls @ 999 mls/hr 10/22/19 17:53 10/22/19 18:02 Normal Saline IV 10/22/19 18:53 999 mls/hr .BOLUS ONE Administration Ketorolac Tromethamine 30 mg 10/22/19 17:54 10/22/19 18:02 Toradol IVPUSH 10/22/19 17:55 30 mg ONETIME ONE Administration Ondansetron HCl 4 mg 10/22/19 18:14 10/22/19 18:23 Zofran IVPUSH 10/22/19 18:15 4 mg ONETIME ONE Administration Departure - Departure Time of Disposition: 19:22 Disposition: Home, Self-Care 01 Condition: Good Clinical Impression: Acute bronchitis, Viral illness - Discharge Information Instructions: Acute Bronchitis, Adult, [id number], Viral Illness, Adult Referrals: PCP,None [Primary Care Provider] - Forms: ED Department Discharge Additional Instructions: Zithromax Dosepak and Robitussin-AC. Increase rest and fluids. Return to emergency department if symptoms worsen or not improving. Recheck with PCP if symptoms continue. Prednisone and albuterol as directed. Care Plan Goals: The following information is given to patients seen in the emergency department who are being discharged to home. This information is to outline your options for follow-up care. We provide all patients seen in our emergency department with a follow-up referral. The need for follow-up, as well as the timing and circumstances, are variable depending upon the specifics of your emergency department visit. If you don't have a primary care physician on staff, we will provide you with a referral. We always advise you to contact your personal physician following an emergency department visit to inform them of the circumstance of the visit and for follow-up with them and/or the need for any referrals to a consulting specialist. The emergency department will also refer you to a specialist when appropriate. This referral assures that you have the opportunity for follow-up care with a specialist. All of these measure are taken in an effort to provide you with optimal care, which includes your follow-up. Under all circumstances we always encourage you to contact your private physician who remains a resource for coordinating your care. When calling for follow-up care, please make the office aware that this follow-up is from your recent emergency room visit. If for any reason you are refused follow-up, please contact the [facility] Emergency Department at and asked to speak to the emergency department charge nurse. Sepsis Event Note - Evaluation Sepsis Screening Result: Possible Sepsis Risk - Focused Exam Vital Signs: Vital Signs Temp Pulse Resp BP Pulse Ox 10/22/19 19:15 36.7 C 89 18 108/49 L 96 10/22/19 18:25 86 21 H 118/33 L 97 10/22/19 17:41 36.3 C 91 22 H 128/72 97 Date Exam was Performed: 10/22/19 Time Exam was Performed: 19:18 - My Orders Last 24 Hours: My Active Orders 10/22/19 17:54 RT Aerosol Therapy [RC] ASDIRECTED - Assessment/Plan Last 24 Hours: My Active Orders 10/22/19 17:54 RT Aerosol Therapy [RC] ASDIRECTED
[2019-10-22] MEDS ORDERED: Sodium Chloride 0.9% 1,000 ML IV ONE (17:53)
[2019-10-22] MEDS ORDERED: Albuterol/Ipratropium 3.0-0.5 MG/3 ML Neb Soln NEB ONE (17:53)
[2019-10-22] MEDS ORDERED: Ketorolac 30 MG/ML SDV IVPUSH ONE (17:54)
[2019-10-22] MEDS ORDERED: Ondansetron 4 MG/2 ML SDV IVPUSH ONE (18:14)
[2019-10-22] MEDS ORDERED: Codeine/guaiFENesin 100-10 MG/5 ML Syrup 5 ML Cup PO ONE (18:30)
[2019-10-22] MEDS ORDERED: predniSONE 20 MG Tab PO ONE (19:17)
== END 2019-10-22 19:43 | disposition home or self-care (01) ==
LOC: MW.ED 17:33
DX: J20.9 Acute bronchitis, unspecified (principal); B34.9 Viral infection, unspecified; I10 Essential (primary) hypertension; Z87.891 Personal history of nicotine dependence; Z88.0 Allergy status to penicillin; Z91.030 Bee allergy status
CPT/HCPCS: 87804; 93005; 94640; 96361; 96374; 96375; 99285; A9270; J1885; J2405; J7030; J7620-GY